=== PATIENT | female | born 1990 | race Caucasian/White ===

== ENCOUNTER 2020-02-23 07:46 | Emergency (ER) | payer BC, SELFPAY ==
--- NOTE | ~2020-02-23 | XR_ITS ---
XR heel LT min 2V 02/23/2020 08:16 Indication: Pain at the insertion of the Achilles tendon. Recent injury. Procedure: 2 views left heel/os calcis Comparison: No prior studies for comparison. Findings: There are prominent degenerative calcaneal enthesophytes. No fracture or traumatic malalign ment. No significant soft tissue abnormality. No radiopaque foreign bodies. Impression: 1: Prominent degenerative calcaneal enthesophytes. 2: No acute bone or joint abnormality. Reviewed, dictated and finalized at location A. Impression: 1: Prominent degenerative calcaneal enthesophytes. 2: No acute bone or joint abnormality.
[2020-02-23 07:59] VITALS: BP 140/88; PULSE 88; RESP 18; TEMP 37; O2SAT 100
--- NOTE | 2020-02-23 08:05 | ED.LOWEXIN ---
HPI - Extremity Injury (Lower) General Chief Complaint: Fall Stated Complaint: L foot pain Source: patient Mode of arrival: ambulatory Limitations: no limitations History of Present Illness HPI Narrative: This 30 y.o. injured her left heel last PM when while walking on an irregular surface she pushed off her left foot to step up. When she put weight on the foot she had immediate heel pain; she was able to walk with a limp. Several hours later there was swelling and increased pain. This AM the pain is #2/10 at rest #6/10 when she attempts to walk. Related Data Allergies Allergy/AdvReac Type Severity Reaction Status Date / Time Penicillins Allergy Mild Blister Verified 02/23/20 08:38 Review of Systems Neurologic: Comments: denies left foot numbness PMFSH Past Medical History Medical History (Updated 02/23/20 @ 08:39 by Emery Nguyễn MD) Patient denies significant medical history Social History Social History Gender identity (if verbalized by the patient): Female Exam Narrative: Exam Narrative: Sitting in a wheelchair. Const: General: no acute distress Extrem: Other: Swelling lateral to the left achilles tender. No discoloration. Tender distal 3 cm of the achilles; very tender over the insertion site. No ankle, foot or plantar heel tenderness or swelling. Pain heel pain with foot dorsiflexion. N Course Vital Signs Vital signs: Vital Signs Temperature 37.0 C 02/23/20 07:59 Pulse Rate 88 02/23/20 07:59 Respiratory Rate 18 02/23/20 07:59 Blood Pressure 140/88 02/23/20 07:59 Pulse Oximetry 100 02/23/20 07:59 Temperature 37.0 C 02/23/20 07:59 Pulse Rate 88 02/23/20 07:59 Respiratory Rate 18 02/23/20 07:59 Blood Pressure 140/88 02/23/20 07:59 Pulse Oximetry 100 02/23/20 07:59 MDM - Extremity Injury (Lower) MDM Narrative Medical decision making narrative: X ray shows no acute bony pathology. Cortés test reveals plantar flexion and intact achilles tendon. Will tx as an achilles tendinitis. Pt. given handout on the appropriate ankle wrap and instructions on how to avoid painful activites. She works 2 jobs; can't take time off. Asks for a note explaining her situation. Insurance has assigned her to Dr. Nuñez who she will see in 4 days. Differential Diagnosis Differential diagnosis: Likely ankle sprain and strain and other (partial tear of distal achilles tendon. ) Imaging Data Radiologist's impression: Impression: 1: Prominent degenerative calcaneal enthesophytes. 2: No acute bone or joint abnormality. Discharge Plan Discharge Clinical Impression: Achilles tendinosis Patient Disposition: Home, Self-Care Condition: Stable Instructions: Achilles Tendinitis (ED) Additional Instructions: Take naproxen 220 mg #2 tablets every 12 hours. If needed for pain, take every 8 hours. Ice every 2 - 4 hours for 15 minutes x 2 days. Follow up with Dr. Nuñez in 4 days for recheck Use crutches if any pain with walking. Use heel insert or elevated heel shoes or wrap ankle ( see handout on ankle wrap given to you) to support heel and avoid pain. Prescriptions: New naproxen 500 mg tablet 500 mg PO BID PRN (Reason: pain) Qty: 20 RF: 0 (DME) crutch Misc See Rx Instructions .ROUTE .MEDSUPPLY Qty: 2 RF: 0 Follow-up/Referrals: PHYSICIAN NOT ON STAFF,NONSTAFF [Primary Care Provider] - Stand Alone Forms: Work/School Release IP Time of Disposition: 08:45
[2020-02-23] MEDS: IBUPROFEN 400 MG TABLET PO (08:37)
--- NOTE | 2020-02-23 08:46 | PC.NURSE ---
ashli wrap to left ankle
[2020-02-23 08:56] VITALS: BP 130/70; PULSE 70; RESP 16; TEMP 36.8; O2SAT 99
== END 2020-02-23 08:57 | disposition home or self-care (01) ==
PROVIDERS: Emergency Provider Family Medicine
DX: M76.62 Achilles tendinitis, left leg (principal)
CPT/HCPCS: 73650; 99281; 99283; A9270

== ENCOUNTER 2021-01-20 14:23 | Emergency (ER) | payer BC, SELFPAY ==
--- NOTE | ~2021-01-20 | XR_ITS ---
EXAMINATION: XR hand LT 2V, XR wrist LT min 3V EXAM DATE: 01/20/2021 15:51 (accession [id number]), 01/20/2021 15:52 (accession [id number]) INDICATION: Left hand/wrist pain x 10 days ago post fall off bed. Initial encounter. TECHNIQUE: Left hand frontal, lateral and oblique projections obtained and reviewed. Left wrist fron migel, frontal with ulnar deviation, oblique and lateral projections obtained and reviewed. There is n o prior study for comparison. FINDINGS: Left metacarpal bones are unremarkable. Left wrist scapholunate joint space is maintained . There are no acute fractures or dislocations identified. There is no subcutaneous gas. The soft t issue is unremarkable. There are no radiopaque foreign bodies. IMPRESSION: 1. Unremarkable left hand, wrist exam. Reviewed, dictated and finalized at location A. IMPRESSION: 1. Unremarkable left hand, wrist exam.
[2021-01-20 14:40] VITALS: BP 151/98; PULSE 106; RESP 16; TEMP 36.6; O2SAT 98
--- NOTE | 2021-01-20 15:48 | ED.UPPEXIN ---
HPI - Extremity Injury (Upper) General Chief Complaint: Extremity Injury, Upper Stated Complaint: wrist and hand pain Time Seen by Provider: 01/20/21 14:45 Source: patient Mode of arrival: ambulatory Limitations: no limitations History of Present Illness HPI narrative: Patient comes in due to left wrist and left hand pain. This has been sharp, moderately severe, ongoing for the past 2 days since she fell off a couch and caught herself with that hand. complaint: injury to: left, wrist and hand Onset (ago): day(s) Place: home Severity: moderate Relieving factors: immobilization Exacerbating factors: movement of extremity Context: fall Associated symptoms: denies other symptoms Treatments prior to arrival: NSAIDS (ibuprofen at home has helped to make it feel some better) Related Data Home Medications Medication Instructions Recorded Confirmed No Home Medications 01/20/21 01/20/21 Allergies Allergy/AdvReac Type Severity Reaction Status Date / Time Penicillins Allergy Mild Blister Verified 02/23/20 08:38 Review of Systems Constitutional: Constitutional: Reports no additional constitutional complaints Eyes: Eyes: Reports no additional eye complaints ENT: Reports system reviewed and no additional complaints, except as documented Cardiovascular: Cardiovascular: Reports no additional cardiovascular complaints Respiratory: Respiratory: Reports no additional respiratory complaints Gastrointestinal: Gastrointestinal: Reports no additional gastrointestinal complaints Genitourinary: Genitourinary: Reports no additional female genitourinary complaints Musculoskeletal: Musculoskeletal: Reports no additional musculoskeletal complaints Integumentary/Breasts: Skin/Breast: Reports system reviewed and no additional complaints, except as docu Neurologic: Reports system reviewed and no additional complaints, except as documented Psychiatric: Psychiatric: Reports no additional psychiatric complaints Endocrine: Endocrine: Reports no additional endocrine complaints Hematologic/Lymphatic: Hematologic/Lymphatic: Reports no additional hematologic/lymphatic complaints Allergic/Immunologic: Allergic/Immunologic: Reports no additional allergic/immunologic complaints [facility] Past Medical History Medical History (Updated 01/21/21 @ 00:01 by Percy Murphy) Patient denies significant medical history Surgical History Surgical History (Updated 01/21/21 @ 02:13 by Demetrius Choi MD) No significant past surgical history Family History Family History (Updated 01/21/21 @ 02:14 by Demetrius Choi MD) Mother Hypothyroid Social History Social History (Updated 01/21/21 @ 02:14 by Demetrius Choi MD) Smoking status: Never smoker Alcohol intake: current Alcohol use details: minimal rare alcohol intake Gender identity (if verbalized by the patient): Female Exam Const: General: no acute distress Orientation/consciousness: patient oriented x3 HENMT: Head: normal to inspection Ears: external ears normal General nose exam: Normal external nose present Mouth: Yes Normal oral and palatal mucosa present Throat: posterior oropharynx normal Eyes: Conjunctivae: conjunctivae normal Neck: Neck: no lymphadenopathy Chest: Chest palpation & inspection: normal inspection of the chest Resp: Effort & Inspection: normal respiratory effort Auscultation: clear to auscultation bilaterally Cardio: Rate: regular rate Rhythm: regular rhythm GI: GI Palp: Yes Soft to palpation (nontender) Back/Spine/Pelvis: Back: no CVA tenderness Skin: General skin exam: normal color Neuro: General: patient oriented x3 and moves all extremities Extrem: General: normal to inspection Psych: Appearance: grossly normal Mental Status: mental status grossly normal Course Course Emergency Course: plain films of left hand and wrist were done, and both negative Vital Signs Vital signs: Vital Signs Temperature 36.6 C 01/20/21 1
== END 2021-01-20 16:30 | disposition home or self-care (01) ==
PROVIDERS: Emergency Provider Emergency Medicine
DX: M25.532 Pain in left wrist (principal)
CPT/HCPCS: 73110; 73120; 99282; 99283

== ENCOUNTER 2021-06-29 07:43 | Outpatient (CLI) | payer BC, SELFPAY ==
--- NOTE | 2021-07-14 12:28 | WPDHOMESLEEP ---
Sleep Study - Home Unattended Date of Study: 06/29/21 <Shirley Chavez DO - Last Filed: 07/14/21 12:48> Ordering Provider: Santana No MD <Shirley Chavez DO - Last Filed: 07/14/21 12:48> Interpreting Provider: Shirley Chavez DO <Shirley Chavez DO - Last Filed: 07/14/21 12:48> Home Sleep Study Type: Apnea Link Air <Shirley Chavez DO - Last Filed: 07/14/21 12:48> Height: 1.57 m <Shirley Chavez DO - Last Filed: 07/14/21 12:48> Weight: 108.862 kg <Shirley Chavez DO - Last Filed: 07/14/21 12:48> Body Mass Index: 43.9 <Shirley Chavez DO - Last Filed: 07/14/21 12:48> Neck Circumference (inches): 16 <Shirley Chavez DO - Last Filed: 07/14/21 12:48> Emerson: 9 <Shirley Chavez DO - Last Filed: 07/14/21 12:48> Reason for Sleep Study Unrefreshing sleep, daytime somnolence <Shirley Chavez DO - Last Filed: 07/14/21 12:48> Sleep History The patient was referred by her primary care physician for unrefreshing sleep and daytime somnolence. The patient states that she has issues falling asleep and staying asleep. She has terrible dreams 5-6 nights per week. She states that she has to sleep in a recliner so she is up around 8. She feels very uncomfortable when she has to sleep flat. The patient states she occasionally awakens from sleep short of breath. She frequently awakens at night with heartburn, belching or cough. He frequently snores but is rarely loud enough that others complain. She frequently has trouble sleeping when she has a cold. She rarely wakes up gasping for air throughout the night. She occasionally has breathing problems at night observed by others. She occasionally sweats excessively at night. She constantly notices heart palpitations or irregular beats throughout the night. She rarely falls asleep during the day but never while driving. She occasionally has trouble at school or work due to sleepiness. She denies sleep paralysis and cataplexy. She frequently experiences vivid dreamlike scenes upon awakening or falling asleep. She occasionally feels afraid of going to sleep. She constantly has nightmares and frequently remembers her dreams. She constantly has thoughts racing through her mind. She occasionally feels sad or depressed. She frequently feels anxious. She occasionally notices parts of her body jerk. She occasionally kicks during the night. She occasionally experiences crawling and aching feelings in her legs and frequently has leg pain during the night. She rarely grinds her teeth during sleep but occasionally awakens with jaw pain in the morning. She is occasionally bothered by pain during the day but is rarely awakened by pain during the night. She occasionally wakes up feeling stiff in the morning with sore and achy muscles. The patient goes to bed between 10 and 11:00 p.m. on the weekdays and between 11 and midnight on the weekends. It takes her an hour or more to fall asleep. She wakes up 5-8 times per night. When she awakens, she will try to stretch or change positions. She can fall back asleep within 5-15 minutes. She wakes up between 6 and 7:00 a.m. on the weekdays and at 8:00 a.m. on the weekends. She typically gets 4-6 hours of sleep per night. She will stay in bed for 10-15 minutes after waking up in the morning. She currently lives with her and 2 children. She does not consume any caffeinated beverages within 2 hours of going to bed. She does not engage in physical exercise before bedtime. She will watch television before falling asleep. She does not take naps in the afternoon or the evening. She drinks 1-2 caffeinated beverages per day. She denies tobacco, alcohol and recreational drug use. <Shirley Chavez, - Last Filed: 07/14/21 12:48> [facility] Past Medical History Medical History: Medical History (Reviewed 07/14/21 @ 12:38 by Shirley Trejo
[2021-07-14 12:47] VITALS: BMI 43.9
== END 2021-06-30 10:40 | disposition home or self-care (01) ==
LOC: ANHCSM 07:44
PROVIDERS: PCP Family Medicine; Visit Provider Family Medicine
DX: G47.33 Obstructive sleep apnea (adult) (pediatric) (principal)
CPT/HCPCS: 95806

== ENCOUNTER 2021-08-03 16:55 | Outpatient (CLI) | payer BC, SELFPAY ==
[2021-08-03 18:31] LABS: Influenza A QL RT-PCR Negative (Negative); Influenza B QL RT-PCR Negative (Negative); SARS-CoV-2 RNA PCR Negative (Negative)
== END 2021-08-03 16:56 | disposition home or self-care (01) ==
LOC: CHSLAB 16:58
PROVIDERS: PCP Family Medicine; Visit Provider Family Medicine
DX: Z20.822 Contact with and (suspected) exposure to COVID-19 (principal); J02.9 Acute pharyngitis, unspecified
CPT/HCPCS: 87081; 87502; 87880; C9803; U0003; U0005

== ENCOUNTER 2021-10-22 21:40 | Emergency (ER) | payer BC, SELFPAY ==
[2021-10-22 21:46] VITALS: BP 150/96; PULSE 113; RESP 18; TEMP 37; O2SAT 100
--- NOTE | 2021-10-22 23:09 | ED.GENADULT ---
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 Reports she has been having daily bleeding for the last 2 months. Reports history of heavy periods. Reports she started passing golf ball size clots today. She also feels little short of breath when she walks. No dizziness or syncope. No fevers or chills or sweats. Has not seen a professor of psychology in 5 years. Does not believe she is . Reports some occasional cramping in her lower abdomen. Related Data Home Medications Medication Instructions Recorded Confirmed multivitamin [Daily Multivitamin] tablet 10/22/21 Allergies Allergy/AdvReac Type Severity Reaction Status Date / Time Penicillins Allergy Mild Blister Verified 10/22/21 23:27 Review of Systems Review of Systems: All systems reviewed & are unremarkable except as noted in HPI and below Constitutional: Constitutional: Denies chills, Denies fever(s) and Denies weakness ENT: Denies nasal congestion and Denies sore throat Cardiovascular: Cardiovascular: Denies chest pain, Denies rapid heart rate and Denies radiating jaw, neck or arm pain Respiratory: Respiratory: Denies cough and Reports dyspnea Gastrointestinal: Gastrointestinal: Reports abdominal pain, Denies diarrhea, Denies nausea and Denies vomiting Genitourinary: Genitourinary: Reports abnormal vaginal bleeding, Denies dysuria, Denies pelvic pain and Denies vaginal discharge PMFSH Past Medical History Medical History Patient denies significant medical history Surgical History Surgical History No significant past surgical history Family History Family History Mother Hypothyroid Social History Social History Smoking status: Never smoker Alcohol intake: current Alcohol use details: minimal rare alcohol intake Gender identity (if verbalized by the patient): Female Exam Narrative: GENERAL: Well-appearing, well-nourished, and in no acute distress. HEAD: Normocephalic, atraumatic. EYES: PERRL and EOMI. CHEST: Clear to auscultation. No respiratory distress. HEART: Regular rate and rhythm. Normal peripheral pulses. ABDOMEN: Soft, nontender, nondistended. : Normal external genitalia, small amount of blood with small clot, normal cervix that is closed, no tendernss. No discharge. EXTREMITIES: Normal range of motion. No edema. SKIN: Warm, dry, no rash. NEURO: Alert and oriented x3. PSYCH: Normal mood and affect. Course Course Emergency Course: Patient informed results. Discharge home. Follow-up with gynecology. Will give iron for anemia. Vital Signs Vital signs: Vital Signs Temperature 98.6 F 10/22/21 21:46 Pulse Rate 113 H 10/22/21 21:46 Respiratory Rate 18 10/22/21 21:46 Blood Pressure 150/96 H 10/22/21 21:46 Pulse Oximetry 100 10/22/21 21:46 Temperature 98.6 F 10/22/21 21:46 Pulse Rate 113 H 10/22/21 23:36 Respiratory Rate 18 10/22/21 21:46 Blood Pressure 112/81 10/22/21 23:36 Pulse Oximetry 100 10/22/21 21:46 Medical Decision Making Vital Signs Vital Signs: Vital Signs Temperature 98.6 F 10/22/21 21:46 Pulse Rate 113 H 10/22/21 21:46 Respiratory Rate 18 10/22/21 21:46 Blood Pressure 150/96 H 10/22/21 21:46 Pulse Oximetry 100 10/22/21 21:46 Temperature 98.6 F 10/22/21 21:46 Pulse Rate 113 H 10/22/21 23:36 Respiratory Rate 18 10/22/21 21:46 Blood Pressure 112/81 10/22/21 23:36 Pulse Oximetry 100 10/22/21 21:46 Lab Data Result diagrams: 10/22/21 23:18 10/22/21 23:18 Labs: Lab Results 10/22/21 10/22/21
[2021-10-22] MEDS: SODIUM CHLORIDE 0.9% IV 1,000 ML 999 ML IV CONT (23:20)
[2021-10-22 23:27] LABS: Basophils Absolute Auto 0.1 K/mm3 (0.0-0.1); Basophils Percent Auto 0.4 % (0.2-1.2); Eosinophils Absolute Auto 0.2 K/mm3 (0-0.3); Eosinophils Percent Auto 1.9 % (0-4.4); Hematocrit 33.5 % (37.0-47.0); Hemoglobin 10.9 g/dL (12.0-15.0); Immature Granulocyte Absolute 0.06 K/mm3 (0.00-0.031); Immature Granulocyte Percent A 0.5 % (0-0.5); Lymphocytes Absolute Auto 3.21 K/mm3 (0.9-3.2); Lymphocytes Percent Auto 27.1 % (18.3-44.2); Mean Corpuscular HGB Conc 32.5 g/dl (32-36); Mean Corpuscular Hemoglobin 28.3 pg (26-34); Mean Platelet Volume 9.7 fl (7.4-10.4); Monocytes Absolute Auto 0.7 K/mm3 (0.1-0.6); Monocytes Percent Auto 6.2 % (2.6-8.5); Neutrophils Absolute Auto 7.6 K/mm3 (1.3-6.7); Neutrophils Percent Auto 63.9 % (45.5-73.1); Platelet Count Result 348 k/mm3 (150-375); Red Blood Count 3.85 M/mm3 (4.2-5.4); Red Cell Distribution Width 15.3 % (11.5-14.5); White Blood Count 11.9 K/mm3 (4.5-10.0)
[2021-10-22 23:36] VITALS: BP 112/81; BP 120/72; BP 128/76; PULSE 101; PULSE 108; PULSE 113
[2021-10-22 23:38] LABS: Anion Gap 9 mmol/L (8-16); Blood Urea Nitrogen 13 mg/dL (7-17); Calcium 9.4 mg/dL (8.4-10.2); Carbon Dioxide 24 mmol/L (22-30); Chloride 106 mmol/L (98-107); Estimated CRCL calculation 84 ml/min; Estimated Glomerular Filt Rate > 60; Glucose 107 mg/dL (65-110); Potassium 4.1 mmol/L (3.4-5.0); Sodium 139 mmol/L (137-145)
[2021-10-22 23:43] LABS: Add Urine Microscopic? YES; Appearance Urine Clear (Clear); Bilirubin Urine Negative (Negative); Blood Urine 3+ (Negative); Calcium Oxalate Crystals Urine Many /hpf; Color Urine Yellow (Yellow); Glucose Urine UA Negative (Negative); Ketones Urine Negative (Negative); Leukocyte Esterase Ur Negative LEU/UL (Negative); Mucus Urine Rare /lpf; Nitrate Urine Negative (Negative); Protein Urine 1+ mg/dL (Negative); RBC Urine >75 /hpf (0-2); Specific Grav Ur 1.025 (1.001-1.035); Squamous Epithelial Cell Urine Rare /hpf (Few); Urobilinogen Urine Negative mg/dL (<2.0); WBC Urine 0-3 /hpf
[2021-10-23 00:34] VITALS: BP 125/76; PULSE 101; RESP 18; O2SAT 100
== END 2021-10-23 00:38 | disposition home or self-care (01) ==
PROVIDERS: Emergency Provider Emergency Medicine; PCP Family Medicine
DX: N93.8 Other specified abnormal uterine and vaginal bleeding (principal); D64.9 Anemia, unspecified
CPT/HCPCS: 36415; 80048; 81001; 81025; 85025; 96360; 99284; J7030

== ENCOUNTER 2022-06-14 16:44 | Outpatient (NON) | payer BC, SELFPAY ==
[2022-06-14 17:00] LABS: Occult Blood Negative (Negative)
[2022-06-14 17:00] LABS: Occult Blood Negative (Negative)
[2022-06-14 17:00] LABS: Occult Blood Negative (Negative)
== END 2022-06-14 16:45 | disposition home or self-care (01) ==
LOC: CHSLAB 16:46
PROVIDERS: Visit Provider Family Medicine
DX: D50.9 Iron deficiency anemia, unspecified (principal)
CPT/HCPCS: 82272

== ENCOUNTER 2022-07-19 12:07 | Outpatient (CLI) | payer BC, SELFPAY ==
[2022-07-19 13:27] LABS: Influenza A QL RT-PCR Positive (Negative); Influenza B QL RT-PCR Negative (Negative); SARS-CoV-2 RNA PCR Negative (Negative)
== END 2022-07-19 12:08 | disposition home or self-care (01) ==
PROVIDERS: PCP Family Medicine; Visit Provider Family Medicine
DX: J06.9 Acute upper respiratory infection, unspecified (principal); Z20.822 Contact with and (suspected) exposure to COVID-19
CPT/HCPCS: 87636

== ENCOUNTER 2024-10-24 08:03 | Emergency (ER) | payer OTHER, SELFPAY ==
[2024-10-24 08:07] VITALS: BP 115/67; PULSE 64; RESP 16; TEMP 36.6; O2SAT 99
--- OUTSIDE RECORDS SUMMARY | 2024-10-24 08:08 | XMS_ITS | Referral Summary ---
Author Organization [facility] Address [address] [place] [address] Care Team Providers Care Trauma Coordinator Name Role Phone Mary Lou Gallardo NP Primary Care Provider [phone] Encounters Date Type Department Care Team Description 10/17/2024 11:00 AM CHART SNATCHER Office Visit [facility] Medical [facility] at [address] [address] Qian Yuen NP Dental abscess (Primary Dx) 10/09/2024 6:49 PM CHART SNATCHER - 10/09/2024 9:39 PM CHART SNATCHER Emergency [facility] Emergency Department [address] [place] [address] Other migraine without status migrainosus, not intractable (Primary Dx) Discharge Disposition: Discharge to home or self care 10/08/2024 1:00 PM CHART SNATCHER Office Visit [facility] at [address] [place] [address] Benny Ferrer DO Acute left ankle pain (Primary Dx); Closed nondisplaced fracture of left calcaneus, unspecified portion of calcaneus, initial encounter 09/28/2024 7:15 PM CHART SNATCHER Office Visit [facility] at [address] [address] Lebron Thomas NP Acute left ankle pain (Primary Dx); Achilles tendon pain 09/28/2024 10:30 AM CHART SNATCHER Ancillary Procedure [facility] at [address] [address] Left foot pain 09/28/2024 Orders Only [facility] Medical [facility] Primary Care at [address] [address] Mary Lou Gallardo NP Left foot pain (Primary Dx) 09/28/2024 Telephone [facility] at [address] [address] Mary Lou Gallardo NP Left foot pain from Last 3 Months Allergies Active Allergy Reactions Criticality Noted Date Comments Cigarette Smoke Unknown 09/12/2023 Penicillins Hives Medium 05/11/2023 Medications ascorbic acid (vitamin C) 1,000 mg tablet Take 1 tablet (1,000 mg total) by mouth daily Active buPROPion XL (WELLBUTRIN XL) 150 mg 24 hr tablet Take 1 tablet (150 mg total) by mouth every morning 90 tablet 1 05/28/20 24 Active ergocalciferol (VITAMIN D) 50,000 unit capsule Take 1 capsule (50,000 Units total) by mouth once a week 12 capsule 06/13/20 24 Active diphenhydrAMINE (BENADRYL) 25 mg capsuleIndicati ons:Other migraine without status migrainosus, not intractable Take 1 tablet/capsule (25 mg total) by mouth every 8 (eight) hours as needed for other (Take as directed with each dose of prochlorperazine to help alleviate headache, dizziness, and prevent jitteriness from prochlorperazine) Collaborating physician Emery Casper MD 30 tablet/caps ule 10/09/19 25 Active prochlorperazin e (COMPAZINE) 10 mg tabletIndicatio ns:Other migraine without status migrainosus, not intractable Take 0.5-1 tablets (5-10 mg total) by mouth every 8 (eight) hours as needed for nausea (And headache) Collaborating physician Emery Casper MD 20 tablet 10/09/19 25 Active naproxen (NAPROSYN) 500 mg tabletIndicatio ns:Other migraine without status migrainosus, not intractable Take 1 tablet (500 mg total) by mouth 2 (two) times a day with meals P.r.n. pain and headache. Collaborating physician Emery Casper MD 30 tablet 10/09/19 25 Active clindamycin (CLEOCIN) 300 mg capsuleIndicati ons:Dental abscess Take 1 capsule (300 mg total) by mouth 3 (three) times a day for 10 days 30 capsule 10/17/19 25 025 Active Active Problems Problem Noted Date Diagnosed Date Migraine 10/09/2024 Well woman exam 07/23/2024 Overview (07/23/2024): Lab: Pap:all normal Labs with PCP Tim: Colonoscopy: BMD: Gardasil:11/05 Assessment & Plan (07/23/2024 12:28 PM CHART SNATCHER): Pap done. RTO 12m. I will send the results to the portal. If she has not heard in a week, to call the office. BMI 38.0-38.9,adult 07/23/2024 Assessment & Plan (07/23/2024 12:29 PM CHART SNATCHER): She was applauded for her weight loss and encouraged to continue on. Family history of breast cancer 07/23/2024 Overview (07/23/2024): 07/23/24- mom, sister and aunt carry a gene Assessment & Plan (07/23/2024 12:33 PM CHART SNATCHER): She qualifies for genetic testing. Will arrange. RTO 6 weeks for the results. We discussed that she will get the results through email prior to this, but we will wait to discuss them at her scheduled appointment. The limitations and implications of the test reviewed. She voices understanding and would like to proceed. Pricing and instructions for declining if it cost too much were reviewed by the staff. 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 We started Wellbutrin XL. Has improved with the Wellbutrin XL 150 mg daily. 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 Will stay at the 150 mg daily dosage and see if this improves as it seems to be helping mood. Patient to message me in a couple weeks to see if any improvement. May need to switch to alternative medication. She has tried Sertraline in the past. Considering Lexapro. Assessment & Plan (03/22/2024 1:45 PM CDT): Never formally diagnosed. Patient exhibiting some sx of ADHD but also anxiety/depression. She feels mood is stable overall, will continue to monitor and she will let me know if she is needing medication. CAARS screen provided to patient, Wellbutrin may be a good option for her though with mood hx. Anxiety Assessment & Plan (05/01/2024 1:12 PM CDT): Has improved with the Wellbutrin XL 150 mg daily. 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 Will stay at the 150 mg daily dosage and see if this improves as it seems to be helping mood. Patient to message me in a couple weeks to see if any improvement. May need to switch to alternative medication. She has tried Sertraline in the past. Considering Lexapro. Depression Resolved Problems Problem Noted Date Diagnosed Date Resolved Date Abnormal uterine bleeding 12/09/2021 Immunizations Immunization Administration Dates Next Due Hep B, Adolescent or Pediatric 10/26/2000,1999,03/10/2000 Influenza, Unspecified 09/05/2023,09/05/2022 Pneumococcal Polysaccharide PPV23 12/01/2013 Tdap 09/23/2016,12/02/2013 Social History Tobacco Use Types Packs/Day Years Used Date Smoking Tobacco: Never Smokeless Tobacco: Never Tobacco Cessation:Counseling Given: Not Answered Humiliation, Afraid, Rape, and Kick questionnair e Answer Date Recorded Within the last year, have y ou been afraid of your partner or ex-partner? No 07/23/2024 Within the last year, have y ou been humiliated or emotionally abused in other ways by your partner or ex-partner? No Within the last year, have y ou been kicked, hit, slapped, or otherwise physically hurt by your partner or ex-partner? No 07/23/2024 Within the last year, have y ou been raped or forced to have any kind of sexual activity by your partner or ex-partner? No 07/23/2024 AUDIT-C Answer Date Recorded Q1: How often do you have a drink containing alcohol? Never 05/23/2023 Q2: How many drinks containi ng alcohol do you have on a typical day when you are drinking? Patient does not drink Q3: How often do you have si x or more drinks on one occasion? Never 05/23/2023 PHQ-2 Answer Date Recorded PHQ-2 Total Score (If total score is 3 or more points, staff should administer the PHQ-9) 0 05/01/2024 Personal Safety Answer Date Recorded Have you ever been in or are you currently in a harmful physical or emotional relationship or is someone making you feel afraid or unsafe? Denies 10/09/2024 Comments No Sex and Gender Information Value Date Recorded Sex Assigned at Not on file Legal Sex Female 11:52 AM CHART SNATCHER Gender Identity Not on file Sexual Orientation Not on file Last Filed Vital Signs Vital Sign Reading Time Taken Comments Blood Pressure 128/84 10/17/2024 10:48 AM CHART SNATCHER Pulse 97 10/17/2024 10:48 AM CHART SNATCHER Temperature 37 C (98.6 F) 10/17/2024 10:48 AM CHART SNATCHER Respiratory Rate 20 10/17/2024 10:48 AM CHART SNATCHER Oxygen Saturation 98% 10/17/2024 10:48 AM CHART SNATCHER Inhaled Oxygen Concentration - - Weight 90.7 kg (200 lb) 10/09/2024 3:12 PM CHART SNATCHER Height 157.5 cm (5' 2 ) 10/08/2024 12:57 PM CHART SNATCHER Body Mass Index 36.58 10/08/2024 12:57 PM CHART SNATCHER Plan of Treatment Not on file Procedures Procedure Name Priority Date/Time Associated Diagnosis Comments CT HEAD WO CONTRAST ED 10/09/2024 3:46 PM CHART SNATCHER XR FOOT LEFT 3 OR MORE VIEWS Schedule Routine, Read Routine (OP Routine) 09/28/2024 10:32 AM CHART SNATCHER Left foot pain HIGH RISK HPV DNA DETECTION WITH GENOTYPING Routine 07/23/2024 1:43 PM CHART SNATCHER Well woman exam HEPATITIS C ANTIBODY Routine 03/22/2024 12:30 PM CDT Encounter for hepatitis C screening test for low risk patient from Last 3 Months or Most Recently Relevant to Health Maintenance Results * CT Head WO Contrast (10/09/2024 3:46 PM CHART SNATCHER) Anatomical Region Laterality Modality Head and Neck N/A Computed Tomogra phy 10/09/2024 4:00 PM CHART SNATCHER Narrative 10/09/2024 4:03 PM CHART SNATCHER EXAM DESCRIPTION: CT HEAD WO CONTRAST REASON FOR STUDY: Worsening headache accompanied by nausea Pt arrives ambulatory with steady gait and personal cane. Pt states hx of migraines. Pt states today had a migraine took medication and pain somewhat relieved but was nauseated. Pt states feeling dizzy as well as having photosensitivity and rates 2/10 for pain. Neuro assess normal. Pt states directly prior was negative for Covid, flu, and strep. TECHNIQUE: Axial images acquired through the brain without intravenous contrast. Images stored on PACS. Automated exposure control was used as a dose optimization technique for this examination. COMPARISON: None. FINDINGS: BRAIN: No acute intraparenchymal hemorrhage, cerebral edema, hydrocephalus, mass, or mass effect. EXTRA-AXIAL SPACES: No extra-axial fluid collection or mass. CALVARIUM: No acute skull base or calvarial abnormality. SINUSES/MASTOIDS: Predominantly clear. ORBITS: No significant abnormality. OTHER: No other significant abnormality. IMPRESSION: No evidence of an acute intracranial abnormality. THIS IS AN ELECTRONICALLY VERIFIED FINAL REPORT 10/09/2024 4:03 PM - Electronically signed by Dawson Degroot M.D. CH: NORA Report ID: [id number] Reading Location: [id number] Procedure Note Dawson Degroot Jr., MD - 10/09/2024 EXAM DESCRIPTION: CT HEAD WO CONTRAST REASON FOR STUDY: Worsening headache accompanied by nausea Pt arrives ambulatory with steady gait and personal cane. Pt states hxof migraines. Pt states today had a migraine took medication and painsomewhat relieved but was nauseated. Pt states feeling dizzy as well as having photosensitivity and rates 2/10 for pain. Neuro assess normal. Pt states directly prior was negative for Covid, flu, and strep. TECHNIQUE: Axial images acquired through the brain without intravenous contrast. Images stored on PACS. Automated exposure control was used asa dose optimization technique for this examination. COMPARISON: None. FINDINGS: BRAIN: No acute intraparenchymal hemorrhage, cerebral edema,hydrocephalus, mass, or mass effect. EXTRA-AXIAL SPACES: No extra-axial fluid collection or mass. CALVARIUM: No acute skull base or calvarial abnormality. SINUSES/MASTOIDS: Predominantly clear. ORBITS: No significant abnormality. OTHER: No other significant abnormality. IMPRESSION: No evidence of an acute intracranial abnormality. THIS IS AN ELECTRONICALLY VERIFIED FINAL REPORT 10/09/2024 4:03 PM - Electronically signed by Dawson Degroot M.D. CH: Report ID: [id number] Reading Location: [id number] Michele ESPINOZA IM CT PROCEDURES Final Resu lt * XR Foot Left 3+ Vw (09/28/2024 10:32 AM CHART SNATCHER) Anatomical Region Laterality Modality Lower Extremities, Foot Left Digital Radiography 09/28/2024 11:2 4 AM CHART SNATCHER Narrative 09/28/2024 11:25 AM CHART SNATCHER EXAM DESCRIPTION: XR FOOT LEFT 3 OR MORE VIEWS REASON FOR STUDY: left foot pain/injury Pt complains of medial and posterior foot pain with sharp pain shooting up leg after using leg weights x 1 week ago. No prior fx or surgery. FINDINGS: Three views nonweightbearing submitted without comparison. No acute fracture. The midfoot joint spaces are normal. There is mild 1st metatarsophalangeal joint osteoarthritis. Insertional Achilles tendinopathy with enthesophyte formation and a moderate-sized heel spur are present. 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 Moderate-sized heel spur. THIS IS AN ELECTRONICALLY VERIFIED FINAL REPORT 09/28/2024 11:25 AM - Electronically signed by Benny Garcia M.D. T: Report ID: [id number] Reading Location: [id number] Procedure Note Benny Garcia MD - 09/28/2024 EXAM DESCRIPTION: XR FOOT LEFT 3 OR MORE VIEWS REASON FOR STUDY: left foot pain/injury Pt complains of medial and posterior foot pain with sharp pain shooting upleg after using leg weights x 1 week ago. No prior fx or surgery. FINDINGS: Three views nonweightbearing submitted without comparison. No acute fracture. The midfoot joint spaces are normal. There is [id number] metatarsophalangeal joint osteoarthritis. Insertional Achillestendinopathy with enthesophyte formation and a moderate-sized heel spur are present. 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 Moderate-sized heel spur. THIS IS AN ELECTRONICALLY VERIFIED FINAL REPORT 09/28/2024 11:25 AM - Electronically signed by Benny Garcia M.D. T: Report ID: [id number] Reading Location: [id number] us Mary Lou Gallardo CIRCUIT TESTER IMG XR PROCEDURES Final Result * High Risk HPV DNA Detection with Genotyping (Molecular component) (07/23/2024 1:43 PM CHART SNATCHER) HPV HR 16 Not Detected Not Detected [facility] Comment:Testing performed by : [facility], [address] [place]., [address] HPV HR 18 Not Detected Not Detected [facility] Comment:Testing performed by : [facility], [address] [facility], [place]., [address] HPV HR Non 16/18 Not Detected Not Detected [facility] Comment: Interpretive Data Nucleic acid amplification for detection of high-risk Human Papilloma virus (HPV) is performed by the Wu Carlyle 6800 HPV test. This assay specifically detects HPV-16 and HPV-18 genotypes. The following HPV genotypes are detected as high-risk HPV: HPV-31, 33, 35, ,39, 45, 51, 52, 56, 58, 59, 66, and 68. This assay has been approved by the [place] Food and Drug Administration for detection of HPV in cervical specimens collected by a physician using an endocervical brush/spatula or cervical broom and placed in the ThinPrep Pap Test PreservCyt collection containers. The performance characteristics of this test have been verified by the [facility] Molecular Infectious Disease laboratory. Correlate with separately reported cytology results, as applicable. Interpretive data last revised 23 Testing performed by: [facility], [address] [place]., [address] Endocervical 07/23/2024 1:43 PM CHART SNATCHER 07/24/2024 1:04 PM CHART SNATCHER Jose L GUNDERSON - 07/24/2024 8:29 PM CHART SNATCHER Clinical history and diagnosis->Well Woman Number of vials->1 Testing type->Screening Last menstrual period (date if known)->07/20/2023 Menstrual status->Other, please type in Ablation Mary Alice Traore MD LAB BODY FLUIDS AND STOOLS ORDERABLES Final Result [facility] [id number] [address] Department [place] [address] [facility] * Hepatitis C antibody Blood (03/22/2024 12:30 PM CDT) Hep C Ab Nonreactive Nonreactive Comment: Interpretive Data Nonreactive: Antibodies to HCV not detected. Does NOT exclude the possibility of recent exposure to HCV. Equivocal: Equivocal for HCV antibodies. Supplemental molecular testing will be automatically performed to determine infection status in accordance with current CDC screening recommendations. Reactive: Positive for HCV antibodies. This may represent current or past HCV infection. Supplemental molecular testing will be automatically performed to determine current infection status in accordance with current CDC screening recommendations. Interpretive data was last revised on 2019. Blood 03/22/2024 12:3 0 PM CDT 03/22/2024 7:15 PM CDT Mary Lou Gallardo NP LAB MICROBIOLOGY - GENERAL [place] [id number] [address] Department [place] [address] from Last 3 Months or Most Recently Relevant to Health Maintenance Insurance [employer] [employer] Address: [facility] [id number] [place] [address] [facility] PL[facility] Care Teams Trauma Coordinator Relationship Specialty Start Date End Date Mary Lou Gallardo NP [address] [facility] [address] [place] [address] PCP - General Family Medicine 03/22/24
--- OUTSIDE RECORDS SUMMARY | 2024-10-24 08:08 | XMS_ITS | Clinical Summary ---
Author Organization [facility] Address [address] [place] [address] Care Team Providers Care Press Washer Name Role Phone Jaun Nuñez MD Primary Care Provider [phone] Allergies Active Allergy Reactions Criticality Noted Date Comments Penicillins Hives 02/24/2020 Medications naproxen sodium 220 MG tablet Take 220 mg by mouth 2 (two) times daily with meals. Active Social History Tobacco Use Types Packs/Day Years Used Date Smoking Tobacco: Never Smokeless Tobacco: Never Alcohol Use Standard Drinks/Week Comments Yes 0 (1 standard drink = 0.6 oz pur e alcohol) occasionally Comments No Sex and Gender Information Value Date Recorded Sex Assigned at Not on file Legal Sex Female 5:52 AM CDT Gender Identity Not on file Sexual Orientation Not on file Last Filed Vital Signs Vital Sign Reading Time Taken Comments Blood Pressure 144/78 02/24/2020 6:02 AM CDT Pulse 89 02/24/2020 6:02 AM CDT Temperature 36.4 C (97.6 F) 02/24/2020 6:02 AM CDT Respiratory Rate 18 02/24/2020 6:02 AM CDT Oxygen Saturation 99% 02/24/2020 6:02 AM CDT Inhaled Oxygen Concentration - - Weight 97.5 kg (215 lb) 02/24/2020 6:02 AM CDT Height 157.5 cm (5' 2 ) 02/24/2020 6:02 AM CDT Body Mass Index 39.32 02/24/2020 6:02 AM CDT Plan of Treatment Health Maintenance Due Date Last Done Comments Cervical Cancer Screening Pa p Smear (Age 30 to 64) Every 3 Years 1991 Annual Physical 1994 Hepatitis C 2009 DTaP, Tdap and Td Vaccines ( 1 - Tdap) 2010 Hepatitis B Vaccines (1 of 3 - 19+ 3-dose series) 2010 Cervical Cancer Screening Ryne davis with HPV Testing (Age 30 to 64) Every 5 Years 2021 Cervical Cancer Screening with HPV 2021 COVID-19 Vaccine ( - 2023-2 5 season) 2024 Influenza Adult (#1) 2024 HPV Vaccines Aged Out No longer eligi ble based on patient's age to complete this topic Meningococcal B Vaccine Aged Out No l onger eligible based on patient's age to complete this topic Meningococcal Vaccine Aged Out No jolene arun eligible based on patient's age to complete this topic Pneumococcal Vaccine: Pediat rics (0 to 5 Years) and At-Risk Patients (6 to 64 Years) Aged Out No longer eligible b ased on patient's age to complete this topic RSV Immunizations Under 20 Months Aged Out No longer eligible based on patient's age to complete this topic Insurance Care Teams Press Washer Relationship Specialty Start Date End Date Jaun Nuñez MD [address] [place] [address] PCP - General INTERNAL MEDICINE 02/24/20
--- OUTSIDE RECORDS SUMMARY | 2024-10-24 08:08 | XMS_ITS | Clinical Summary ---
Author Organization [facility] Address [address] [place] [address] Phone Care Team Providers Care Rayon Winder Name Role Phone Provider, None Primary Care Provider Unavailabl e Allergies Active Allergy Reactions Criticality Noted Date Comments Penicillins Anaphylaxis 09/19/2016 Medications Vit-Fe Fumarate-FA ( VITAMIN PO) Take 1 Tab by mouth daily. Active ondansetron (ZOFRAN) 4 MG Tablet Take 1 Tab by mouth every 8 hours as needed for Nausea. 10 Tab 0 09/20/2016 Active ibuprofen (MOTRIN) 200 MG Tablet Take 2-3 tabs orally every 4-6 hours as needed for pain. 09/24/2016 Active Active Problems Problem Noted Date Diagnosed Date , unspecified trimester 09/22/2016 Immunizations Immunization Administration Dates Next Due TDAP Vaccine 09/23/2016 Family History Medical History Relation Name Comments Heart Disease Maternal Grandmother Breast Cancer Paternal Grandmother Relation Name Status Comments Maternal Grandmother Paternal Grandmother Social History Tobacco Use Types Packs/Day Years Used Date Smoking Tobacco: Never Smokeless Tobacco: Never Tobacco Cessation:Counseling Given: Not Answered Alcohol Use Standard Drinks/Week Comments No 0 (1 standard drink = 0.6 oz pur e alcohol) Sexually Active Control Partners Comments Yes Male Comments No Sex and Gender Information Value Date Recorded Sex Assigned at Not on file Legal Sex Female 10:17 PM CDT Gender Identity Not on file Sexual Orientation Not on file Last Filed Vital Signs Vital Sign Reading Time Taken Comments Blood Pressure 124/66 05/24/2023 8:16 PM CDT Pulse 75 05/24/2023 8:16 PM CDT Temperature 36.2 C (97.1 F) 05/24/2023 8:16 PM CDT Respiratory Rate 18 05/24/2023 8:16 PM CDT Oxygen Saturation 99% 05/24/2023 8:16 PM CDT Inhaled Oxygen Concentration - - Weight 96.6 kg (213 lb) 05/24/2023 8:16 PM CDT Height 157.5 cm (5' 2 ) 05/24/2023 8:16 PM CDT Body Mass Index 38.96 05/24/2023 8:16 PM CDT Plan of Treatment Not on file Insurance [place] [id number] Advance Directives * Full Code (Latest Code Status on File) Date Activated Date Inactivated Comments 09/22/2016 5:46 AM 09/24/2016 8:05 PM CPR-Full Rahul atment: FULL ARREST: Attempt Resuscitation/CPR wit intubation and mechanical ventilation. PRE-ARREST: Use entire range of life support measures to stabilize the patient. * Full Code Date Activated Date Inactivated Comments 09/21/2016 3:31 PM 09/21/2016 7:52 PM CPR-Full Rahul atment: FULL ARREST: Attempt Resuscitation/CPR wit intubation and mechanical ventilation. PRE-ARREST: Use entire range of life support measures to stabilize the patient. * Full Code Date Activated Date Inactivated Comments 09/19/2016 12:36 PM 09/19/2016 8:08 PM CPR-Full Tr eatment: FULL ARREST: Attempt Resuscitation/CPR wit intubation and mechanical ventilation. PRE-ARREST: Use entire range of life support measures to stabilize the patient. Care Teams Rayon Winder Relationship Specialty Start Date End Date Provider, None [place] PCP - General 09/20/16
--- OUTSIDE RECORDS SUMMARY | 2024-10-24 08:08 | XMS_ITS | Data Portability ---
Author Organization [facility] , [facility] Address [address] [place] [address] Care Team Providers Care Curator Of Collections Name Role Phone [facility] Ramp Supervisor Assessment No assessment recorded. Plan of Treatment Reminders Order Date Submit Date Provider Last Modified By Organization Details Last Modified Time Details Appointments None recorded. [facility] test, [facility] [address] [place], [address], 3 09:59:23 biopsy, tissue 2022 023 [facility], [address] [place], [address], 3 18:39:24 unlisted lab - abnormal uterine bleeding evaluation panel ([facility]) 2022 023 [facility], [address] [place] [address], [address], 3 11:52:58 CBC w/ auto diff 2022 023 [facility], [address] [place], [address], 3 11:32:35 Referral None recorded. Procedures None recorded. Surgeries None recorded. Imaging None recorded. Medication Orders Slynd 4 mg (28) tablet 2022 023 [id number], [address], [place], [id number], 3 19:22:58 Reclipsen (28) 0.15 mg-0.03 mg tablet [address] [id number], [address], [place], [phone], 3 15:53:33 Patient TargetsNo targets recorded. Patient InstructionsNo instructions recorded. Reason for Referral None Reported. Results Created Date Observation Date Name Description Value Unit Range Abnormal Flag Note LastModifiedBy Organization Detail LastModifiedTime 03/09/2003/10/2023 CBC (INCL UDES DIFF/ PLT) WBC 11.4 thous and/u L 4.0 - 9.8 high Not [place], [address], 03/10/2023 11:32:35 03/09/20 23 03/10/2023 CBC (INCL UDES DIFF/ PLT) RBC 4.5 maciej on/uL 3.9 - 4.9 normal [place], [address], 03/10/2023 11:32:35 03/09/20 23 03/10/2023 CBC (INCL UDES DIFF/ PLT) hemoglobin 11.5 g/dL 11.8 - 14.8 low Not [place], [address], 03/10/2023 11:32:35 03/09/20 23 03/10/2023 CBC (INCL UDES DIFF/ PLT) hematocrit 36.2 % 35.5 - 44.0 normal [place], [address], 03/10/2023 11:32:35 03/09/20 23 03/10/2023 CBC (INCL UDES DIFF/ PLT) MCV 80.1 fL 82.0 - 99.0 low Not Available [address], [address], 03/10/2023 11:32:35 03/09/20 23 03/10/2023 CBC (INCL UDES DIFF/ PLT) MCH 25.4 pg 27.2 - 32.6 low Not Available [address], [address], 03/10/2023 11:32:35 03/09/20 23 03/10/2023 CBC (INCL UDES DIFF/ PLT) MCHC 31.8 g/dL 31.5 - 35.5 normal Not Available [address], [address], 03/10/2023 11:32:35 03/09/20 23 03/10/2023 CBC (INCL UDES DIFF/ PLT) RDW-CV 19.4 % 11.5 - 14.5 high Not Available [address], [address], 03/10/2023 11:32:35 03/09/20 23 03/10/2023 CBC (INCL UDES DIFF/ PLT) platelet 411 thous and/u L 140 - 350 high Not Available [address], [address], 03/10/2023 11:32:35 03/09/20 23 03/10/2023 CBC (INCL UDES DIFF/ PLT) MPV 10.8 fL 9.3 - 12.4 normal Not Available [address], [address], 03/10/2023 11:32:35 03/09/20 23 03/10/2023 CBC (INCL UDES DIFF/ PLT) absolute neutrophil 7.81 thous and/u L 1.90 - 7.00 high Not Available [address], [address], 03/10/2023 11:32:35 03/09/20 23 03/10/2023 CBC (INCL UDES DIFF/ PLT) absolute lymphocyte 2.72 thous and/u L 0.70 - 4.50 normal Not Available [address], [address], 03/10/2023 11:32:35 03/09/20 23 03/10/2023 CBC (INCL UDES DIFF/ PLT) absolute monocyte 0.57 thous and/u L 0.10 - 1.30 normal Not Available [address], [address], 03/10/2023 11:32:35 03/09/20 23 03/10/2023 CBC (INCL UDES DIFF/ PLT) absolute eosinophil 0.19 thous and/u L <0.70 normal Not Available [address], [address], 03/10/2023 11:32:35 03/09/20 23 03/10/2023 CBC (INCL UDES DIFF/ PLT) absolute basophil 0.05 thous and/u L <0.20 normal Not Available [address], [address], 03/10/2023 11:32:35 03/09/20 23 03/10/2023 CBC (INCL UDES DIFF/ PLT) absolute immature granulocyte 0.02 thous and/u L <0.03 normal Not Available [address], [address], 03/10/2023 11:32:35 03/09/20 23 03/10/2023 ABNOR MAL UTERI NE BLEED ING EVALU ATION PANEL ([facility] ) HCG, total, quant < 2 mIU/m L < 5 Refer ence Range s are for femal es aged 18 years - Adult Nonpr egnan t or preme nopau stuart <5 Postm enopa usal <10 Value s from diffe rent assay metho ds may vary. The use of this assay to monit or or to diagn ose patie nts with cance r or any other condi tion unrel ated to pregn laquita has not been valid ated by the manuf actur genie of this assay . Not Available [facility] [address] [place], [address], 03/10/2023 11:52:57 03/09/20 23 03/10/2023 ABNOR MAL UTERI NE BLEED ING EVALU ATION PANEL ([facility] ) TSH 2.40 mIU/L 0.55 - 4.78 normal Refer ence Range Femal e aged 18-Ad ult: 0.55- 4.78 Pregn laquita Refer ence Range s First Trime ster 0.26- 2.66 Secon d Trime ster 0.55- 2.73 Third Trime ster 0.43- 2.91 Not Available [facility] [address] [place], [address], 03/10/2023 11:52:57 03/09/20 23 03/10/2023 ABNOR MAL UTERI NE BLEED ING EVALU ATION PANEL ([facility] ) T4, free 1.07 NG/dL 0.89 - 1.76 normal Not Available [address], [address], 03/10/2023 11:52:57 04/11/20 23 04/13/2023 TISSU E PATHO LOGY clinical information Abnor mal uteri ne bleed ing Not Available [facility] [address] [place], [address], 04/13/2023 18:39:24 04/11/2004/13/2023 TISSU E PATHO LOGY pathologist Nasim Parra M.D., Board Certi fied in Anato balta Patho logy and Clini ariane Patho logy. Phone (elec troni c john ac) Not Available [facility] [address] [place], [address], 04/13/2023 18:39:24 04/11/20 23 04/13/2023 TISSU E PATHO LOGY A source Endom etriu m, biops y Not Available [facility] [address] [address] [place], [address], 04/13/2023 18:39:24 04/11/20 23 04/13/2023 TISSU E PATHO LOGY A gross description Speci men is recei miroslava in 10% neutr al buffe red forma zamzam, label ed with multi ple patie nt ident ifier s and consi sts of multi ple fragm ents of soft tissu e aggre gatin g to 2.0 x 1.5 x 0.3 cm, irreg ular in shape and taylor-b rown in color . The speci men is entir rylie submi tted in one casse tte. Gross exam( s) perfo rmed at: [facility] [address] [place] [address], [place] [address] Labor atory Direc tor: JANNETH Mckeon MD Not Available [facility] [address] [address] [place], [address], 04/13/2023 18:39:24 04/11/20 23 04/13/2023 TISSU E PATHO LOGY A diagnosis Benig n disor dered proli ferat bran endom etriu m with copio us blood . No hyper plasi a or malig uriel . Not Available [facility] [address] [place], [address], 04/13/2023 18:39:24 04/11/20 23 04/11/2023 pregn laquita test, urine HCG negati ve Not Available [facility] [address] [place], [address], 04/08/2023 08:47:37 04/08/2004/07/2023 US, tavia mckeon No observ ation record ed. [email or web address], [place], [address], 04/13/2023 10:27:17 Result Notes None recorded. Problems Name Problem SNOMED Code Status Onset Date Resolution Date Notes Provider Name and Address Organization Details Recorded Time Abnormal uterine bleeding 78098858718184 Active 2021 Eliezer Kirkpatrick, HAILEY [address] [place], [address], [facility] 2 15:30:53 Problem Notes None recorded. Procedures Surgical History Date Name Laterality Status Provider Name and Address Organization Details Recorded Time 3 Suture/Staple removal completed Lisette Nguyễn [facility] 06/15/2023 10:18:10 3 Endometrial Biopsy completed Kayleen Bernard [place] [address] [place] [address], [phone], [facility] [place] 04/11/2023 19:18:51 2 Date of Last Pap Smear completed Kayleen Bernard [place] [address] [place] [address], [phone], [facility] 04/08/2023 08:46:19 Imaging Results Imaging Date Name Status LastModified by Organiz ation Details LastModified Time 04/07/2023 US, pelvis completed [email or web address] [address], [place], [address], 04/13/2023 10:27:17 Procedure Notes None recorded. Medical Equipment None Reported. Allergies Allergen ID Allergen Name Allergen Category Reaction Reaction Severity Criticality Documentation Date Start Date Code Code System Note Provider Name and Address Organization Details Recorded Time 41120105 cigarette smoke environme nt Not available Not available Not available 10/26/2021 25040 UNK Not Available Not Available Not Available 41120106 Product containin g penicilli n (product) medicatio n Not available Not available Not available 10/26/2021 19694 8001 SNOMED Not Available Not Available Not Available Medications Name Sig Start Date Stop Date Status Note LastModified by Organization Details LastModified Time medroxypro gesterone 10 mg tablet TAKE 1 TABLET BY MOUTH EVERY DAY FOR 10 DAYS 03/29 completed Not Available Not Available Not Available clindamyci n HCl 300 mg capsule TAKE 1 CAPSULE BY MOUTH THREE TIMES DAILY 04/07 completed Not Available Not Available Not Available oxycodone- acetaminop hen 5 mg-325 mg tablet TAKE 1 TABLET BY MOUTH EVERY 6 HOURS NEEDED FOR PAIN 06/15 completed Not Available Not Available Not Available estradiol 1 mg tablet TAKE 1 TABLET BY MOUTH EVERY DAY FOR 7 DAYS 12/09 completed Not Available Not Available Not Available pantoprazo le 40 mg tablet,del ayed release active Not Available Not Available Not Available diclofenac sodium 75 mg tablet,del ayed release 04/07 completed Not Available Not Available Not Available magnesium active Not Available Not Mandie ilable Not Available potassium acetate active Not Available Not Available Not Available One-A-Day Womens Formula active Not Available Not Available Not Available Iron (ferrous sulfate) active Not Available Not Available Not Available Vitamin B12 active Not Available Not Available Not Available Isibloom 0.15 mg-0.03 mg tablet TAKE 1 TABLET BY MOUTH EVERY DAY 04/07 completed Not Available Not Available Not Available Slynd 4 mg (28) tablet Take 1 tablet every day by oral route. 2022 active 3 sample packs given. Not Available Not Available Not Available Vitals Date Recorded Body height Body mass index (BMI) Body weight Body temperature Systolic blood pressure Diastolic blood pressure Provider Name and Address Organization Details Last Updated DateTime 2 157.48 cm 35.3 kg/m2 08043.3 3 g 97.8 [degF] 122 mm[Hg] 72 mm[Hg] Ilene Cisse [place] [facility] 2 16:24:28 Date Recorded Body height Body mass index (BMI) Body weight Body temperature Systolic blood pressure Diastolic blood pressure Provider Name and Address Organization Details Last Updated DateTime 3 157.48 cm 39.7 kg/m2 44210.8 3 g 98.6 [degF] 128 mm[Hg] 74 mm[Hg] Lisette Nguyễn [facility] 3 15:26:09 Date Recorded Body height Systolic blood pressure Diastolic blood pressure Provider Name and Address Organization Details Last Updated DateTime 04/07/2023 157.48 cm 122 mm[Hg] 70 mm[Hg] Leena Delgado [facility] 04/07/2023 15:53:24 Date Recorded Body height Body mass index (BMI) Body weight Systolic blood pressure Diastolic blood pressure Provider Name and Address Organization Details Last Updated DateTime 04/11/2023 157.48 cm 40.1 kg/m2 28600.7 3 g 126 mm[Hg] 72 mm[Hg] Amina Sierraroderick [facility] 3 09:31:57 Date Recorded Body height Body mass index (BMI) Body weight Body temperature Systolic blood pressure Diastolic blood pressure Provider Name and Address Organization Details Last Updated DateTime 3 157.48 cm 39.3 kg/m2 83293.3 6 g 97.3 [degF] 120 mm[Hg] 76 mm[Hg] Lisette Nguyễn [facility] 3 09:59:48 Social History Question Answer Notes LastModified by Organizat ion Details LastModified Time Tobacco Smoking Status Never Smoker Ilene deleon, [facility] 10/26/2021 12:07:12 What Is Your Level Of Alcohol Consumption? Moderate Information not available 10/26/2021 If You Are , What Was Your Level Of Alcohol Consumption Prior To ? None Information not available 12/09/2021 How Many Years Have You Consumed Alcohol? 5 Information not available 10/26/2021 Are You Blind Or Do You Have Difficulty Seeing? No Information not available 10/26/2021 Are You Deaf Or Do You Have Serious Difficulty Hearing? No Information not available 10/26/2021 What Type Of Diet Are You Following? REGULAR Information not available 10/26/2021 Which Illicit Or Recreational Drugs Have You Used? Marijuana Information not available 10/26/2021 Do You Or Have You Ever Used E-cigarettes Or Vape? Never Used Electronic Cigarettes Information not available 10/26/2021 How Many Children Do You Have? 2 Information not available 06/06/2023 What Is Your Relationship Status? Domestic Partner Information not available 10/26/2021 Are You Sexually Active? Yes Information not available 10/26/2021 Do You Use Any Illicit Or Recreational Drugs? Yes Information not available 10/26/2021 Have You Used IV Drugs? No Information not available 10/26/2021 Do You Or Have You Ever Used Any Other Forms Of Tobacco Or Nicotine? No Information not available 12/09/2021 Sex: Unknown Functional Status Question Answer Note LastModified by Organizat ion Details LastModified Time What is your exercise level? Occasional Information not available 10/26/2021 Mental Status None recorded. Family History Relationship Description Onset Age of this Age Resolved Age Notes LastModified by Organization Details LastModified Time Maternal Grandmother Malignant neoplastic disease [email or web address] Not available 2021 12:06:30 Maternal Grandmother Malignant tumor of breast [email or web address] Not available 2021 12:06:30 Maternal Grandmother Depressive disorder [email or web address] Not available 2021 12:06:30 Maternal Grandmother Hypertensive disorder [email or web address] Not available 2021 12:06:30 Paternal Grandfather Depressive disorder kbritsch Not available 2021 12:06:30 Paternal Grandfather Malignant neoplastic disease [email or web address] Not available 2021 12:06:30 Paternal Grandfather Hypertensive disorder kbritsch Not available 2021 12:06:30 Mother Depressive disorder kbritsch Not available 2021 12:06:30 Unspecified Relation Malignant tumor of lung kbritsch Not available 2021 12:06:30 Unspecified Relation Uterine leiomyoma kbritsch Not available 2021 12:06:30 Maternal Grandfather Malignant tumor of colon kbritsch Not available 2021 12:06:30 Maternal Grandfather Malignant neoplastic disease kbritsch Not available 2021 12:06:30 Maternal Grandfather Heart disease kbritsch Not available 2021 12:06:30 Paternal Grandmother Heart disease kbritsch Not available 2021 12:06:30 Paternal Grandmother Malignant neoplastic disease kbritsch Not available 2021 12:06:30 Sister Depressive disorder kbritsch Not available 2021 12:06:30 Sister Endometriosi s (clinical) kbritsch Not available 12:06:30 Sister Malignant tumor of ovary not too sure [email or web address] Not available 10/26/2021 12:41:36 Sister Malignant neoplasm of uterus kbritsch Not available 2021 12:06:30 Sister Malignant tumor of cervix kbritsch Not available 2021 12:06:30 Sister History of endometriosi s 24 [email or web address] Not available 10/26 12:41:02 Medical History Condition Response Other Cancer N High Blood Pressure N Colon Cancer N Cytomegalovirus N Hyperthyroidism N Breast Cancer N Herpes (HSV) N Blood Transfusion N MRSA N Lung Cancer N Hypothyroidism N Depression N Incontinence N Panic Attacks N Neurological Disorder N Deep Vein Thrombosis N Anxiety Disorder N Autoimmune disease N Arthritis N Tuberculosis/Positive PPD N Shingles N Polycystic Ovarian Syndrome N Cervical Cancer N Chlamydia N Hematuria N Stroke N Varicosities N Crohn's Disease N Seasonal allergies N Alzheimer's/Dementia N COPD/Emphysema N HPV/Genital Warts N Endometriosis N IBS (Irritable Bowel Syndrome) N History of Abnormal Pap N High Cholesterol N Liver Disease N Kidney Infection N Fibromyalgia N Ulcer N Kidney Disease N HIV N Gallbladder disease N Sickle Cell Disease/Trait N Von Willebrand disease N ADD/ADHD N Eating Disorder N Anemia N Diabetes Mellitus (non-insulin dependent ) N Ovarian Problems N Multiple Sclerosis N Gonorrhea N Frequent Urinary Tract infections N Osteopenia N Headaches/migraines N GERD (reflux) N Ovarian Cancer N Diabetes (insulin dependent) N Seizures/Epilepsy N Fibroids N Heart Attack N Asthma N Lupus N Endometrial Cancer N Rubella N Blood Clotting Disorder N Bipolar Disorder N Diabetes Mellitus (during ) N Ulcerative Colitis N Hepatitis N Heart Disease N Pulmonary Embolism N RPR N Chicken Pox N Osteoporosis N Gynecological History Statement/Question Response Flow Heavy Date of last HPV 10/26/2021 Frequency of Cycle (Q days) Never the me Date of LMP HPV Vaccine N Date of Last Pap Smear 10/26/2021 Duration of Flow (days) 7 days to months at a time Current Control Method None Age at Menarche 14 Obstetrics History GPAL:G 2 P 2 0 0 2 Type Value Full Term 2 Living 2 Total 2 Past Encounters Encounter ID Performer Location Encounter Start Date Encounter Closed Date Diagnosis/Indication Diagnosis SNOMED-CT Code Diagnosis ICD10 Code Diagnosis Note [id number] GATO Looney [facility] [address] [facility] [address] 10/26/2021 11:51:08 10/26/2021 14:53:59 Gynecologic examination 95238899 Z01.419 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 Denies SI. Denies need for f/u. Abnormal u terine bleeding 3546974674 9100 N93.9 PA for U/S. Discussed tx options for AUB. Janette would prefer to not take control but states she will discuss with her . Prescripti on for estradiol 1 mg x 1 week given. Plan f/u for TVUS once approved and further discuss treatment [id number] GATO Looney [facility] [address] [place] [address] 12/09/2021 15:20:30 12/09/2021 17:19:49 Abnormal uterine bleeding 1448200884 9100 N93.9 Denies further abnormal bleeding. Lining 18 mm on U/S today. Start provera 10 mg x 10 days. Plan repeat US in 4 weeks.Juan Ramon mmend weight loss. [id number] GATO Looney [address] [place] [address] 03/29/2022 16:13:42 03/29/2022 17:39:13 Abnormal uterine bleeding 9704767310 9100 N93.9 Discussed keeping a menstrual record. Reviewed option to observe for regular menses or treat at this time with control to regulate. Janette decided to start control and wants to take OCPs for now.OCPs- discussed risk CVA and VTE; ACHES reviewed. Discussed benefits and side effects.RT O for problems, questions, or concerns and for annual WWE. [id number] ANNA NAJERA LOCATION ANALYST [facility] [address] [place] [address] 03/09/2023 15:09:57 03/09/2023 17:54:48 Disorder of menstruation 605789311 N92.6 Pt comes in with AUB. Patient states that she had a similar issue last year around February. Had blood work and U/S completed. Patient states that she has been bleeding for the past couple of months. 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 When it is heavy she is passing clots approx the size of a golf ball. Patient states that she recently was told she is anemic and is on iron supplement s. Patient states she has issues of fatigue, headaches and feeling light headed at times. Patient reports changing her pad approx 6 times a day. Since last visit in March patient states that her cycles were not regular, but did have more consistenc y to them. She would bleed for 7 days get a break for 2 weeks and then bleed again. Patient states she did not take OCPs sent in at her last visit. Patient states she does not have a good history with OCPs, stating she has bad side effects. Patient also reports she was unable to get pap done at last visit due to bleeding. Cycle too heavy today for pap. Patient declines STI testing. --Discusse d the various causes of abnormal uterine bleeding. Including: polyps, fibroids, hyperplasi a, atypia, anovulatio n, etc.--Revi ewed the typical evaluation with labs and TVUS.--Rec ommended NSAID to help with cramping/b leeding.-- Briefly discussed the options available for treatment (depending on the results of evaluation ) such as hormonal treatment (OCPs, progestins ), Mirena, endometria l ablation, and surgery. Contracept ion: Condoms POCCBCTSHR TC- TVUS- PA case sent Advised patient she can do:-Ibupro fen 800 mg PO Q 8 hours x 5 days OR 600-800 mg 3 days before scheduled menses and 2 days during [id number] Benny Kirkpatrick, DO [facility] [address] [place] [address] 04/07/2023 14:52:07 04/08/2023 11:04:38 Abnormal uterine bleeding 6477670989 9100 N93.9 thickened endometriu m- tubal hysterosco py d and c ablation [id number] Kayleen Bernard, HAILEY [facility] [address] [place] [address] 04/11/2023 09:17:32 04/11/2023 18:42:46 Abnormal uterine bleeding 8069872239 9100 N93.9 UPT negative in office. EMB procedure completed with 1 pass; adequate tissue retrieved and sent to pathology. Further POC pending lab result review. Pt educated on bleeding precaution s, use of OTC NSAID therapy for cramping post-proce dure, and when to notify HCP/go to ER. Pt offered considerat ion for use of hormonal medication s to help control bleeding until procedure date. Pt amenable to POC. Pt given 3 sample packs of Slynd. Discussed risks/bene fits of use and avoidance of unprotecte d intercours e through date of surgery. Pt states understand ing of POC. [id number] Benny Kirkpatrick DO [facility] h [address] [place] [address] 06/15/2023 09:50:37 06/16/2023 10:31:21 Postoperative visit 649745914 Z09 doing well Health Concerns Section Related Observation LastModified by Organization Detai ls LastModified Time None Recorded Concern Status LastModified by Organization Details LastModified Time None Recorded Advance Directives Directive None Recorded Payers Encounter Date Sequence Insurance Name Policy Number Policy Glover Covered Member ID Glover Member ID Guarantor Name 03/29/2022 1 [facility] (MEDICAID REPLACEMENT - O) [id number] Janette Vj [id number] Janette Vj 03/09/2023 1 [facility] (MEDICAID REPLACEMENT - HMO) [id number] Janette Vj [id number] Janette Vj 04/07/2023 1 [facility] (MEDICAID REPLACEMENT - HMO) [id number] Janette Vj [id number] Janette Vj 04/11/2023 1 [facility] (MEDICAID REPLACEMENT - O) [id number] Janette Vj [id number] Janette Vj 06/15/[address] [facility] - HMO) [id number] Janette Vj [id number] Janette Vj Notes Date Note Type Note Provider Name and Address Organization Details Recorded Time 03/29/2022 text/html Janette presents for a f/u visit on abnormal bleeding. She was previously given estradiol 1 mg, then provera 10 mg, but she decided not to take either medication. She also declined oral contraception. She had an US last visit and the uterine lining was 18mm.Janette comes in today explaining that she wasn't completely truthful at her previous visits. 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 She reports that many issues resolved or improved. States she hasn't had any problems with bleeding since she stopped drinking. State she had a normal period in February. GATO Looney [address] [facility], [place], [address], [facility] 03/30/2022 15:46:58 03/09/2023 text/html Patient presents for bleeding for the past couple of months. Patient states that she had a similar issue last year around February. Had blood work and U/S completed. Patient states that she has been bleeding for the past couple of months. 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 When it is heavy she is passing clots approx the size of a golf ball. Patient states that she recently was told she is anemic and is on iron supplements. Patient states she has issues of fatigue, headaches and feeling light headed at times. Patient reports changing her pad approx 6 times a day. Since last visit in March patient states that her cycles were not regular, but did have more consistency to them. She would bleed for 7 days get a break for 2 weeks and then bleed again. Patient states she did not take OCPs sent in at her last visit. Patient states she does not have a good history with OCPs, stating she has bad side effects. Patient also reports she was unable to get pap done at last visit due to bleeding. Cycle too heavy today for pap. Patient declines STI testing. ANNA NAJERA, NATALIE [address] [facility], [place], [address], [employer] IV 03/09/2023 16:08:10 04/07/2023 text/html Abnormal BleedingReported bypatient.Onset/Timin g:every cycle Duration:almost daily Quality:heavy pt is f/u on abnormal uterine bleeding. wants to discuss ablation. Had US in office today. Benny Kirkpatrick DO [facility], [place], [address], [facility] IV 04/08/2023 22:05:19 04/11/2023 text/html Pt presents for EMB procedure. Pt was seen by Brooke Kirkpatrick MD on 04/07/23 for abnormal uterine bleeding. Plan of care for HSC, D&C, Bilat Salping, & Ablation. Last Pap: 10/2021 NILM, HPV neg. Pt denies any unprotected intercourse in the past two weeks. Pt has no other concerns. GATO Moreno [facility], [place], [address], [facility] IV 04/11/2023 19:23:00 06/15/2023 text/html Post-OpReported bypatient.Onset/Timin g:date of surgery: (05/23/2023) Quality:procedure: (LAPAROSCOPIC BILATERAL SALPINGECTOMY DILATION AND CURETTAGE,HYSTEROSCOP Y WITH ABLATION) Context:reason for procedure: (menorrhagia/ undesired fertility) Associated Symptoms:incision healing well; no fatigue; normal appetite; normal bowel function; no constipation; no nausea; no emesis; pain improving; no pain; no fever; no bleeding; no lower extremity edema/pain; no dysuria/urinary symptoms Pt states that she feels much better.Pt only has concerns of bloating but says that she knows it is normal. Benny Kirkpatrick DO [facility], [place], [address], [facility] 06/15/2023 11:00:00 OBGyn Episode No OBEpisode recorded.
--- OUTSIDE RECORDS SUMMARY | 2024-10-24 08:08 | XMS_ITS | Clinical Summary ---
Author Organization [facility] Address [address] [place] [address] Care Team Providers Care Oyster Tonger Name Role Phone Mary Lou Gallardo NP Primary Care Provider [phone] Allergies Active Allergy Reactions Criticality Noted Date [...] Gardasil:11/05 Assessment & Plan (07/23/2024 12:28 PM BUILDING RENTAL MANAGER): Pap done. RTO 12m. I will send the results to the portal. If she has not heard in a week, to call the office. BMI 38.0-38.9,adult 07/23/2024 Assessment & Plan (07/23/2024 12:29 PM BUILDING RENTAL MANAGER): She was applauded for her weight loss and encouraged to continue on. Family history of breast cancer 07/23/2024 Overview (07/23/2024): 07/23/24- mom, sister and aunt carry a gene Assessment & Plan (07/23/2024 12:33 PM BUILDING RENTAL MANAGER): She qualifies for genetic testing. Will arrange. [...] Date Resolved Date Abnormal uterine bleeding 12/09/2021 Encounters Date Type Department Care Team Description 10/17/2024 11:00 AM BUILDING RENTAL MANAGER Office Visit [facility] at [address] [address] Qian Yuen, HAILEY Dental abscess (Primary Dx) 10/09/2024 6:49 PM BUILDING RENTAL MANAGER - 10/09/2024 9:39 PM BUILDING RENTAL MANAGER Emergency [facility] Emergency Department [address] [place] [id number] Other migraine without status migrainosus, not intractable (Primary Dx) Discharge Disposition: Discharge to home or self care 10/08/2024 1:00 PM BUILDING RENTAL MANAGER Office Visit [facility] at [address] [place] [id number] Benny Ferrer DO Acute left ankle pain (Primary Dx); Closed nondisplaced fracture of left calcaneus, unspecified portion of calcaneus, initial encounter 09/28/2024 7:15 PM BUILDING RENTAL MANAGER Office Visit [facility] at [address] [address] Lebron Thomas NP Acute left ankle pain (Primary Dx); Achilles tendon pain 09/28/2024 10:30 AM BUILDING RENTAL MANAGER Ancillary Procedure [facility] Imaging at [address] [phone] Left foot pain 09/28/2024 Orders Only [facility] Primary [facility] at [address] [address] Mary Lou Gallardo NP Left foot pain (Primary Dx) 09/28/2024 Telephone [facility] at [address] [address] Mary Lou Gallardo NP Left foot pain from Last 3 Months Immunizations Immunization Administration Dates Next Due Hep B, Adolescent or Pediatric 10/26/2000,1999,03/10/2000 Influenza, Unspecified 09/05/2023,09/05/2022 Pneumococcal Polysaccharide PPV23 12/01/2013 Tdap 09/23/2016,12/02/2013 Surgical History Surgery Date Site/Laterality Comments ORAL SURGERY 09/05/2009 - 09/04/2010 x6 TUBAL LIGATION DILATION AND CURETTAGE OF UTERUS ENDOMETRIAL ABLATION Medical History Medical History Date Comments Premature baby ADHD (attention deficit hyperactivity disorder) Anemia Depression Anxiety Obesity Sleep apnea Family History Medical History Relation Name Comments Breast cancer Maternal Grandmother Arthritis Mother genetically pos itive. Thyroid disease Mother Lung cancer Mother's Brother Breast cancer Mother's Sister genetically positive Heart disease Paternal Grandfather Breast cancer Paternal Grandmother Endometriosis Sister Fibromyalgia Sister genetically pos itive Lupus Sister Cancer Neg Hx no colon or liz ast cancer cmt 07/23/24 Relation Name Status Comments Maternal Grandmother Mother Mother's Brother Mother's Sister Paternal Grandfather Paternal Grandmother Sister Social History Tobacco Use Types Packs/Day Years [...] on file Legal Sex Female 11:52 AM BUILDING RENTAL MANAGER Gender Identity Not on file Sexual Orientation Not on file Obstetrics History Last Filed Vital Signs Vital Sign Reading Time Taken Comments Blood Pressure 128/84 10/17/2024 10:48 AM BUILDING RENTAL MANAGER Pulse 97 10/17/2024 10:48 AM BUILDING RENTAL MANAGER Temperature 37 C (98.6 F) 10/17/2024 10:48 AM BUILDING RENTAL MANAGER Respiratory Rate 20 10/17/2024 10:48 AM BUILDING RENTAL MANAGER Oxygen Saturation 98% 10/17/2024 10:48 AM BUILDING RENTAL MANAGER Inhaled Oxygen Concentration - - Weight 90.7 kg (200 lb) 10/09/2024 3:12 PM BUILDING RENTAL MANAGER Height 157.5 cm (5' 2 ) 10/08/2024 12:57 PM BUILDING RENTAL MANAGER Body Mass Index 36.58 10/08/2024 12:57 PM BUILDING RENTAL MANAGER Plan of Treatment Health Maintenance Due Date Last Done Comments Varicella Vaccines (1 of 2 - 13+ 2-dose series) 01/20/2004 Influenza Vaccine (#1) 2024 , 09/05/2022 Depression Screening 05/01/2025 05/01/2024, 03/22/2024 Cervical Cancer Screening 07/23/20252023, 07/23/2024, 03/22/2023 Regular Well Visit/Exam 18-64 07/23/2025 07/23/2024 DTaP/Tdap/Td Vaccine (3 - Td or Tdap) 09/23/2026 09/23/2016, 12/02/2013 Hepatitis B Screening Completed 10/26/2000 , 04/12/2000, 03/10/2000 Pneumococcal vaccine <65 Aged Out 12/01/2013 No longer eligible based on patient's age to complete this topic Hepatitis C Screening Completed 03/22/2024 HPV Vaccines Aged Out No longer eligi ble based on patient's age to complete this topic Procedures Procedure Name Priority Date/Time Associated Diagnosis Comments CT HEAD WO CONTRAST ED 10/09/2024 3:46 PM BUILDING RENTAL MANAGER XR FOOT LEFT 3 OR MORE VIEWS Schedule Routine, Read Routine (OP Routine) 09/28/2024 10:32 AM BUILDING RENTAL MANAGER Left foot pain HIGH RISK HPV DNA DETECTION WITH GENOTYPING Routine 07/23/2024 1:43 PM BUILDING RENTAL MANAGER Well woman exam HEPATITIS C ANTIBODY Routine 03/22/2024 12:30 PM CDT Encounter for hepatitis C screening test for low risk patient from Last 3 Months or Most Recently Relevant to Health Maintenance Results * CT Head WO Contrast (10/09/2024 3:46 PM BUILDING RENTAL MANAGER) Anatomical Region Laterality Modality Head and Neck N/A Computed Tomogra phy 10/09/2024 4:00 PM BUILDING RENTAL MANAGER Narrative 10/09/2024 4:03 PM BUILDING RENTAL MANAGER EXAM DESCRIPTION: CT HEAD WO CONTRAST REASON [...] by Dawson Degroot M.D. CH: Report ID: [id number] Reading Location: [id number] Procedure Note Dawson Degroot Jr., MD - [...] Dawson Degroot M.D. CH: NORA Report ID: [id number] Reading Location: [id number] Michele ESPINOZA IMG CT PROCEDURES Final Resu lt * XR Foot Left 3+ Vw (09/28/2024 10:32 AM BUILDING RENTAL MANAGER) Anatomical Region Laterality Modality Lower Extremities, Foot Left Digital Radiography 09/28/2024 11:2 4 AM BUILDING RENTAL MANAGER Narrative 09/28/2024 11:25 AM BUILDING RENTAL MANAGER EXAM DESCRIPTION: XR FOOT LEFT 3 OR [...] by Benny Garcia M.D. T: Report ID: [id number] Reading Location: [id number] Procedure Note Benny Garcia MD - 09/28/2024 [...] midfoot joint spaces are normal. There is [id number] metatarsophalangeal joint osteoarthritis. Insertional Achillestendinopathy with enthesophyte formation and a moderate-sized heel spur are present. 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 Moderate-sized heel spur. THIS IS AN ELECTRONICALLY VERIFIED FINAL REPORT 09/28/2024 11:25 AM - Electronically signed by Benny Garcia M.D. T: Report ID: [id number] Reading Location: [place] [address] Mary Lou Gallardo NP IMG XR PROCEDURES Final Result * High Risk HPV DNA Detection with Genotyping (Molecular component) (07/23/2024 1:43 PM BUILDING RENTAL MANAGER) HPV HR 16 Not Detected Not Detected [facility] Comment:Testing performed by : [facility], [address] [place]., [address] HPV HR 18 Not Detected Not Detected [facility] Comment:Testing performed by : [facility], [address] [place]., [address] HPV HR Non 16/18 Not Detected Not [...] this test have been verified by the [facility] Molecular Infectious Disease laboratory. Correlate with separately reported cytology results, as applicable. Interpretive data last revised 23 Testing performed by: [facility], [address] [place]., [address] Endocervical 07/23/2024 1:43 PM BUILDING RENTAL MANAGER 07/24/2024 1:04 PM BUILDING RENTAL MANAGER Narrative CERNER CH - 07/24/2024 8:29 PM BUILDING RENTAL MANAGER Clinical history and diagnosis->Well Woman Number of vials->1 Testing type->Screening Last menstrual period (date if known)->07/20/2023 Menstrual status->Other, please type in Ablation Mary Alice Traore MD LAB BODY FLUIDS AND STOOLS ORDERABLES Final Result Performing Organization Address [facility] Co de Phone Number [facility] [address] [place] [address] [facility] * Hepatitis C antibody Blood (03/22/2024 12:30 [...] MICROBIOLOGY - GENERAL ORDER BARRY Final Result Performing Organization Address [facility]/ZIP Co de Phone Number [facility] [address] [address] [employer] [place] [address] from Last 3 Months or Most Recently Relevant to Health Maintenance Insurance [employer] Address: [address] [place] [address] [facility] Care Teams Oyster Tonger Relationship Specialty Start Date End Date Mary Lou Gallardo NP [address] [place] [address] PCP - General Family Medicine 03/22/24
--- NOTE | 2024-10-24 08:19 | ED_ITS ---
HPI - Nausea/Vomiting/Diarrhea General Chief complaint: Nausea/Vomiting/Diarrhea Stated complaint: DIARRHEA Time Seen by Provider: 10/24/24 08:08 Source: patient Mode of arrival: ambulatory Limitations: no limitations History of Present Illness HPI Narrative: 34-year-old female was recently diagnosed with dental caries and prescribed clindamycin. The patient has a walking boot in the left lower extremity for of fractured bone spur around the Achillis tendon. The patient presents to the ED with a 1 day history of -- blood around her stool. The blood is noted to be bright red and coating the stool. Blood was present on the wipes. Her stool is firm and well formed. No hematemesis or melena. MD elicited complaint: other ( Rectal bleeding) Onset (ago): day(s) ( 1 day) Associated nausea: Yes Associated abdominal pain: No Location of pain: none Exacerbating factors: none Relieving factors: none Associated symptoms: denies other symptoms Related Data Home Medications ?Medication ?Instructions ?Recorded ?Confirmed ?Last Taken ?Type multivitamin tablet 10/22/21 Unknown History Allergies Allergy/AdvReac Type Severity Reaction Status Date / Time Penicillins Allergy Mild Blister Verified 10/24/24 08:16 Review of Systems 2 Review of Systems: All systems reviewed & are unremarkable except as noted in HPI and below PMFSH Past Medical History Medical History Patient denies significant medical history Surgical History Surgical History No significant past surgical history Family History Family History Mother Hypothyroid Social History Social History Smoking status: Never smoker Alcohol intake: current Alcohol use details: minimal rare alcohol intake Gender identity (if verbalized by the patient): Female Exam 2 Narrative: vitals are stable. Const: General: healthy appearing and no acute distress Nutritional Appearance: well nourished Orientation/consciousness: patient oriented x3 Limitations: no limitations HENMT: Head: normal to inspection Ears: external ears normal F ashli/Nose/Sinus: Normal external nose present Face and sinus: normal facial exam Mouth: Yes Normal oral and palatal mucosa present Throat: posterior oropharynx normal Eyes: Conjunctivae: conjunctivae normal Cornea: corneas normal Pupils: E qual, round and reactive pupils present EOM: EOMs intact bilaterally D irect Ophthalmoscopy: no photophobia Neck: Neck: normal visual inspection, no lymphadenopathy and no meningeal signs Chest: Chest palpation & inspection: normal inspection of the chest Resp: Effort & Inspection: normal respiratory effort Auscultation: clear to auscultation bilaterally Cardio: Rate: regular rate Rhythm: regular rhythm GI: GI Palp: Yes Soft to palpation Auscultation: normal bowel sounds O ther: No tenderness/rigidity / rebound. : General: Yes no CVA tenderness Back/Spine/Pelvis: Back: no CVA tenderness Skin: General skin exam: normal color Rashes: no rashes Wounds: no wounds Neuro: General: patient oriented x3, moves all extremities, no meningeal signs, no focal motor deficits and CN's II-XI intact bilaterally Cranial nerves: Yes Nystagmus not present Speech: normal speech Gait exam (Neuro): Normal gait present Extrem: General: normal to inspection and no clubbing, cyanosis or edema Psych: Mental Status: mental status grossly normal Affect: normal affect Attitude: cooperative Course Course Emergency Course: Rectal bleeding secondary to hemorrhoids-- blood counts are stable hematuria- patient had a uterine ablation and has had intermittent bleeding. Elevated LFTs secondary to fatty liver Vital Signs Vital signs: Vital Signs Oxygen Delivery Room Air 10/24/24 08:03 Temperature 36.6 C 10/24/24 08:07 Pulse Rate 64 10/24/24 08:07 Respiratory Rate 16 10/24/24 08:07 Blood Pressure 115/67 10/24/24 08:07 Pulse Oximetry 99 10/24/24 08:07 Oxygen Delivery Room Air 10/24/24 08:07 MDM - Nausea/Vomiting/Diarrhea MDM Narrative Medical decision making narrative: rectal bleeding hepatic steatosis Differential Diagnosis Differential diagnosis: Likely other ( lower GI bleeding) Lab Data Attestation: I reviewed the patient's lab results. 10/24/24 08:35 10/24/24 08:36 Labs: Lab Results 10/24/24 10/24/24 Range/Units 08:35 08:36 WBC 7.8 (4.8-10.8) K/mm3 RBC 4.94 (4.20-5.40) M/mm3 Hgb 14.7 (12.0-15.0) g/dL Hct 44.0 (35.0-49.0) % MCV 89.1 (78.0-102.0) fL MCH 29.8 (27.0-31.0) pg MCHC 33.4 (32-36) g/dL RDW 13.5 (11.6-14.4) % Plt Count 302 (150-420) K/mm3 MPV 10.0 (9.2-11.8) fl Immature Gran % (Auto) 0.4 H (0.0-0.0) % Neut % (Auto) 65.5 (50.0-70.0) % Lymph % (Auto) 26.7 (18.0-42.0) % Fallon % (Auto) 4.7 (2.0-11.0) % Eos % (Auto) 1.9 (1.0-6.0) % Baso % (Auto) 0.8 (0.0-1.0) % Lymph # (Auto) 2.09 (1.10-4.50) K/mm3 Fallon # (Auto) 0.37 (0.10-0.90) K/mm3 Eos # (Auto) 0.15 (0.02-0.50) K/mm3 Baso # (Auto) 0.06 (0.00-0.10) K/mm3 Abs Immat Gran (auto) 0.03 H (0.00-0.00) K/mm3 Absolute Neuts (auto) 5.12 (1.70-7.20) K/mm3 Absolute Nucleated RBC 0.00 (0.00-0.00) K/mm3 Nucleated RBC % 0.0 (0-0.0) % PT 10.0 (9.50-12.1) Seconds INR 0.9 APTT 26.2 (23.9-30.70) Sec Sodium 139 (136-145) mmol/L Potassium 4.6 (3.5-5.1) mmol/L Chloride 104 (98-108) mmol/L Carbon Dioxide 26 (21-32) mmol/L Anion Gap 9 (4-12) mmol/L BUN 15 (7-18) mg/dL Creatinine 0.81 (0.55-1.02) mg/dL Estim Creat Clear Calc 92 ml/min Estimated GFR > 60 (59 - ) Glucose 107 H (70-99) mg/dL Calculated Osmolality 288 (285-295) mOsm/kg Calcium 8.9 (8.5-10.1) mg/dL Total Bilirubin 0.4 (0.00-1.00) mg/dL AST 38 H (15-37) U/L ALT 79 H (14-59) U/L Alkaline Phosphatase 119 H (46-116) U/L Total Protein 7.1 (6.4-8.2) g/dL Albumin 3.6 (3.4-5.0) g/dL Discharge Plan Discharge Clinical Impression: Rectal bleeding, Fatty liver Hemorrhoids Qualifiers: Hemorrhoid type: unspecified Qualified Code(s): K64.9 - Unspecified hemorrhoids Patient Disposition: Home, Self-Care Condition: Stable Instructions: Antibiotic Form, Hemorrhoids (ED) Patient Language: Kittitian Prescriptions: New polyethylene glycol 3350 [Miralax] 17 gram/dose powder 17 g PO DAILY Qty: 238 0RF No Action multivitamin [Daily Multivitamin] Tablet ferrous sulfate 325 mg (65 mg iron) tablet 325 mg PO DAILY Qty: 30 0RF Follow-up/Referrals: Paulina,Mary Lou Cox APRN [Primary Care Provider] - Time of Disposition: 09:33
[2024-10-24 08:40] LABS: Basophils Absolute Auto 0.06 K/mm3 (0.00-0.10); Basophils Percent Auto 0.8 % (0.0-1.0); Eosinophils Absolute Auto 0.15 K/mm3 (0.02-0.50); Eosinophils Percent Auto 1.9 % (1.0-6.0); Hemoglobin 14.7 g/dL (12.0-15.0); Immature Granulocyte Absolute 0.03 K/mm3 (0.00-0.00); Immature Granulocyte Percent A 0.4 % (0.0-0.0); Lymphocytes Absolute Auto 2.09 K/mm3 (1.10-4.50); Lymphocytes Percent Auto 26.7 % (18.0-42.0); Mean Corpuscular HGB Conc 33.4 g/dL (32-36); Mean Corpuscular Hemoglobin 29.8 pg (27.0-31.0); Mean Corpuscular Volume 89.1 fL (78.0-102.0); Monocytes Absolute Auto 0.37 K/mm3 (0.10-0.90); Monocytes Percent Auto 4.7 % (2.0-11.0); Neutrophils Absolute Auto 5.12 K/mm3 (1.70-7.20); Neutrophils Percent Auto 65.5 % (50.0-70.0); Platelet Count Result 302 K/mm3 (150-420); Red Blood Count 4.94 M/mm3 (4.20-5.40); Red Cell Distribution Width 13.5 % (11.6-14.4); White Blood Count 7.8 K/mm3 (4.8-10.8)
--- OUTSIDE RECORDS SUMMARY | 2024-10-24 08:45 | XMS_ITS | Clinical Summary ---
Author Organization [facility] Address [address] [place] [address] Care Team Providers Care Payroll Assistant Name Role Phone Mary Lou Gallardo NP Primary Care Provider [phone] Allergies Active Allergy Reactions Criticality Noted Date [...] Gardasil:11/05 Assessment & Plan (07/23/2024 12:28 PM CAMPAIGN ASSISTANT): Pap done. RTO 12m. I will send the results to the portal. If she has not heard in a week, to call the office. BMI 38.0-38.9,adult 07/23/2024 Assessment & Plan (07/23/2024 12:29 PM CAMPAIGN ASSISTANT): She was applauded for her weight loss and encouraged to continue on. Family history of breast cancer 07/23/2024 Overview (07/23/2024): 07/23/24- mom, sister and aunt carry a gene Assessment & Plan (07/23/2024 12:33 PM CAMPAIGN ASSISTANT): She qualifies for genetic testing. Will arrange. [...] Department Care Team Description 10/17/2024 11:00 AM CAMPAIGN ASSISTANT Office Visit [facility] Con[facility]ient Care at [address] [address] Qian Yuen, HAILEY Dental abscess (Primary Dx) 10/09/2024 6:49 PM CAMPAIGN ASSISTANT - 10/09/2024 9:39 PM CAMPAIGN ASSISTANT Emergency [facility] Emergency Department [address] [place] [id number] Other migraine without status migrainosus, not intractable (Primary Dx) Discharge Disposition: Discharge to home or self care 10/08/2024 1:00 PM CAMPAIGN ASSISTANT Office Visit [facility] Primary Care at [address] [place] [id number] Benny Ferrer DO Acute left ankle pain (Primary Dx); Closed nondisplaced fracture of left calcaneus, unspecified portion of calcaneus, initial encounter 09/28/2024 7:15 PM CAMPAIGN ASSISTANT Office Visit [facility] Care at [address] [address] Lebron Thomas NP Acute left ankle pain (Primary Dx); Achilles tendon pain 09/28/2024 10:30 AM CAMPAIGN ASSISTANT Ancillary Procedure [facility] Imaging at [address] [address] Left foot pain 09/28/2024 Orders Only [facility] Primary Care at [address] [address] Mary Lou Gallardo NP Left foot pain (Primary Dx) 09/28/2024 Telephone [facility] Primary Care at [address] [address] Mary Lou Gallardo NP Left [...] on file Legal Sex Female 11:52 AM CAMPAIGN ASSISTANT Gender Identity Not on file Sexual Orientation Not on file Obstetrics History Last Filed Vital Signs Vital Sign Reading Time Taken Comments Blood Pressure 128/84 10/17/2024 10:48 AM CAMPAIGN ASSISTANT Pulse 97 10/17/2024 10:48 AM CAMPAIGN ASSISTANT Temperature 37 C (98.6 F) 10/17/2024 10:48 AM CAMPAIGN ASSISTANT Respiratory Rate 20 10/17/2024 10:48 AM CAMPAIGN ASSISTANT Oxygen Saturation 98% 10/17/2024 10:48 AM CAMPAIGN ASSISTANT Inhaled Oxygen Concentration - - Weight 90.7 kg (200 lb) 10/09/2024 3:12 PM CAMPAIGN ASSISTANT Height 157.5 cm (5' 2 ) 10/08/2024 12:57 PM CAMPAIGN ASSISTANT Body Mass Index 36.58 10/08/2024 12:57 PM CAMPAIGN ASSISTANT Plan of Treatment Health Maintenance Due Date [...] HEAD WO CONTRAST ED 10/09/2024 3:46 PM CAMPAIGN ASSISTANT XR FOOT LEFT 3 OR MORE VIEWS Schedule Routine, Read Routine (OP Routine) 09/28/2024 10:32 AM CAMPAIGN ASSISTANT Left foot pain HIGH RISK HPV DNA DETECTION WITH GENOTYPING Routine 07/23/2024 1:43 PM CAMPAIGN ASSISTANT Well woman exam HEPATITIS C ANTIBODY Routine 03/22/2024 12:30 PM CDT Encounter for hepatitis C screening test for low risk patient from Last 3 Months or Most Recently Relevant to Health Maintenance Results * CT Head WO Contrast (10/09/2024 3:46 PM CAMPAIGN ASSISTANT) Anatomical Region Laterality Modality Head and Neck N/A Computed Tomogra phy 10/09/2024 4:00 PM CAMPAIGN ASSISTANT Narrative 10/09/2024 4:03 PM CAMPAIGN ASSISTANT EXAM DESCRIPTION: CT HEAD WO CONTRAST REASON [...] by Dawson Degroot M.D. CH: Report ID: [id number] Reading Location: [id number] Procedure Note Dawson Degroot Jr., MD - [...] Dawson Degroot M.D. CH: NORA Report ID: [id number] Reading Location: [id number] Michele ESPINOZA IMG CT PROCEDURES Final Resu lt * XR Foot Left 3+ Vw (09/28/2024 10:32 AM CAMPAIGN ASSISTANT) Anatomical Region Laterality Modality Lower Extremities, Foot Left Digital Radiography 09/28/2024 11:2 4 AM CAMPAIGN ASSISTANT Narrative 09/28/2024 11:25 AM CAMPAIGN ASSISTANT EXAM DESCRIPTION: XR FOOT LEFT 3 OR [...] by Benny Garcia M.D. T: Report ID: [id number] Reading Location: [id number] Procedure Note Benny Garcia MD - 09/28/2024 [...] midfoot joint spaces are normal. There is [id number] metatarsophalangeal joint osteoarthritis. Insertional Achillestendinopathy with enthesophyte formation and a moderate-sized heel spur are present. 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 Moderate-sized heel spur. THIS IS AN ELECTRONICALLY VERIFIED FINAL REPORT 09/28/2024 11:25 AM - Electronically signed by Benny Garcia M.D. T: Report ID: [id number] Reading Location: [place] [address] Mary Lou Gallardo NP IMG XR PROCEDURES Final Result * High Risk HPV DNA Detection with Genotyping (Molecular component) (07/23/2024 1:43 PM CAMPAIGN ASSISTANT) HPV HR 16 Not Detected Not Detected [facility] Comment:Testing performed by : [facility], [address] [place]., [address] HPV HR 18 Not Detected Not Detected NEPTALI Comment:Testing performed by : [facility], [address] [place]., [address] HPV HR Non 16/18 Not Detected Not [...] this test have been verified by the [facility] Molecular Infectious Disease laboratory. Correlate with separately reported cytology results, as applicable. Interpretive data last revised 23 Testing performed by: [facility], [address] [place]., [address] Endocervical 07/23/2024 1:43 PM CAMPAIGN ASSISTANT 07/24/2024 1:04 PM CAMPAIGN ASSISTANT Narrative CERNER CH - 07/24/2024 8:29 PM CAMPAIGN ASSISTANT Clinical history and diagnosis->Well Woman Number of vials->1 Testing type->Screening Last menstrual period (date if known)->07/20/2023 Menstrual status->Other, please type in Ablation Mary Alice Traore MD LAB BODY FLUIDS AND STOOLS ORDERABLES Final Result Performing Organization Address City/[facility] Co de Phone Number NEPTALI [phone] [place] [address] [facility] * Hepatitis C antibody Blood (03/22/2024 [...] ORDER BARRY Final Result Performing Organization Address City/[facility]/ZIP Co de Phone Number NEPTALI [phone] [address] [place] [address] from Last 3 Months or Most Recently Relevant to Health Maintenance Insurance [employer] Address: [address] [place] [id number] [facility] Care Teams Payroll Assistant Relationship Specialty Start Date End Date Mary Lou Gallardo NP [address] [place] [address] PCP - General Family Medicine 03/22/24
--- OUTSIDE RECORDS SUMMARY | 2024-10-24 08:45 | XMS_ITS | Referral Summary ---
Author Organization [facility] Address [address] [place] [address] Care Team Providers Care Webbing Weaver Name Role Phone Mary Lou Gallardo NP Primary Care Provider [phone] Encounters Date Type Department Care Team Description 10/17/2024 11:00 AM AUTOMATION TECHNOLOGIST Office Visit [facility] Medical [facility] Convenient Care at [address] [address] Qian Yuen NP Dental abscess (Primary Dx) 10/09/2024 6:49 PM AUTOMATION TECHNOLOGIST - 10/09/2024 9:39 PM AUTOMATION TECHNOLOGIST Emergency [facility] Emergency Department [address] [place] [address] Other migraine without status migrainosus, not intractable (Primary Dx) Discharge Disposition: Discharge to home or self care 10/08/2024 1:00 PM AUTOMATION TECHNOLOGIST Office Visit [facility] Sports [facility] and Primary Care at [address] [place] [address] Benny Ferrer DO Acute left ankle pain (Primary Dx); Closed nondisplaced fracture of left calcaneus, unspecified portion of calcaneus, initial encounter 09/28/2024 7:15 PM AUTOMATION TECHNOLOGIST Office Visit [facility] Con[facility]ient Care at [address] [address] Lebron Thomas NP Acute left ankle pain (Primary Dx); Achilles tendon pain 09/28/2024 10:30 AM AUTOMATION TECHNOLOGIST Ancillary Procedure [facility] Imaging at [address] [address] Left foot pain 09/28/2024 Orders Only [facility] Medical [facility] Primary Care at [address] [address] Mary Lou Gallardo NP Left foot pain (Primary Dx) 09/28/2024 Telephone [facility] Primary Care at [address] [address] Mary Lou Gallardo NP Left [...] Gardasil:11/05 Assessment & Plan (07/23/2024 12:28 PM AUTOMATION TECHNOLOGIST): Pap done. RTO 12m. I will send the results to the portal. If she has not heard in a week, to call the office. BMI 38.0-38.9,adult 07/23/2024 Assessment & Plan (07/23/2024 12:29 PM AUTOMATION TECHNOLOGIST): She was applauded for her weight loss and encouraged to continue on. Family history of breast cancer 07/23/2024 Overview (07/23/2024): 07/23/24- mom, sister and aunt carry a gene Assessment & Plan (07/23/2024 12:33 PM AUTOMATION TECHNOLOGIST): She qualifies for genetic testing. Will arrange. [...] on file Legal Sex Female 11:52 AM AUTOMATION TECHNOLOGIST Gender Identity Not on file Sexual Orientation Not on file Last Filed Vital Signs Vital Sign Reading Time Taken Comments Blood Pressure 128/84 10/17/2024 10:48 AM AUTOMATION TECHNOLOGIST Pulse 97 10/17/2024 10:48 AM AUTOMATION TECHNOLOGIST Temperature 37 C (98.6 F) 10/17/2024 10:48 AM AUTOMATION TECHNOLOGIST Respiratory Rate 20 10/17/2024 10:48 AM AUTOMATION TECHNOLOGIST Oxygen Saturation 98% 10/17/2024 10:48 AM AUTOMATION TECHNOLOGIST Inhaled Oxygen Concentration - - Weight 90.7 kg (200 lb) 10/09/2024 3:12 PM AUTOMATION TECHNOLOGIST Height 157.5 cm (5' 2 ) 10/08/2024 12:57 PM AUTOMATION TECHNOLOGIST Body Mass Index 36.58 10/08/2024 12:57 PM AUTOMATION TECHNOLOGIST Plan of Treatment Not on file Procedures Procedure Name Priority Date/Time Associated Diagnosis Comments CT HEAD WO CONTRAST ED 10/09/2024 3:46 PM AUTOMATION TECHNOLOGIST XR FOOT LEFT 3 OR MORE VIEWS Schedule Routine, Read Routine (OP Routine) 09/28/2024 10:32 AM AUTOMATION TECHNOLOGIST Left foot pain HIGH RISK HPV DNA DETECTION WITH GENOTYPING Routine 07/23/2024 1:43 PM AUTOMATION TECHNOLOGIST Well woman exam HEPATITIS C ANTIBODY Routine 03/22/2024 12:30 PM CDT Encounter for hepatitis C screening test for low risk patient from Last 3 Months or Most Recently Relevant to Health Maintenance Results * CT Head WO Contrast (10/09/2024 3:46 PM AUTOMATION TECHNOLOGIST) Anatomical Region Laterality Modality Head and Neck N/A Computed Tomogra phy 10/09/2024 4:00 PM AUTOMATION TECHNOLOGIST Narrative 10/09/2024 4:03 PM AUTOMATION TECHNOLOGIST EXAM DESCRIPTION: CT HEAD WO CONTRAST REASON [...] Dawson Degroot M.D. CH: NORA Report ID: [id number] Reading Location: [id number] Procedure Note Dawson Degroot Jr., MD - [...] by Dawson Degroot M.D. CH: Report ID: [id number] Reading Location: [id number] Michele ESPINOZA IM CT PROCEDURES Final Resu lt * XR Foot Left 3+ Vw (09/28/2024 10:32 AM AUTOMATION TECHNOLOGIST) Anatomical Region Laterality Modality Lower Extremities, Foot Left Digital Radiography 09/28/2024 11:2 4 AM AUTOMATION TECHNOLOGIST Narrative 09/28/2024 11:25 AM AUTOMATION TECHNOLOGIST EXAM DESCRIPTION: XR FOOT LEFT 3 OR [...] by Benny Garcia M.D. T: Report ID: [id number] Reading Location: [id number] Procedure Note Benny Garcia MD - 09/28/2024 [...] midfoot joint spaces are normal. There is [id number] metatarsophalangeal joint osteoarthritis. Insertional Achillestendinopathy with enthesophyte formation and a moderate-sized heel spur are present. 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 Moderate-sized heel spur. THIS IS AN ELECTRONICALLY VERIFIED FINAL REPORT 09/28/2024 11:25 AM - Electronically signed by Benny Garcia M.D. T: Report ID: [id number] Reading Location: [id number] us Mary Lou Gallardo THREAD MACHINE OPERATOR IMG XR PROCEDURES Final Result * High Risk HPV DNA Detection with Genotyping (Molecular component) (07/23/2024 1:43 PM AUTOMATION TECHNOLOGIST) HPV HR 16 Not Detected Not Detected [facility] Comment:Testing performed by : [facility], [address] [facility] [place]., [address] HPV HR 18 Not Detected Not Detected NEPTALI Comment:Testing performed by : [facility], [address] [facility], [place]., [address] HPV HR Non 16/18 Not Detected Not [...] this test have been verified by the [facility] Molecular Infectious Disease laboratory. Correlate with separately reported cytology results, as applicable. Interpretive data last revised 23 Testing performed by: [facility], [address] [place]., [address] Endocervical 07/23/2024 1:43 PM AUTOMATION TECHNOLOGIST 07/24/2024 1:04 PM AUTOMATION TECHNOLOGIST Jose L GUNDERSON - 07/24/2024 8:29 PM AUTOMATION TECHNOLOGIST Clinical history and diagnosis->Well Woman Number of vials->1 Testing type->Screening Last menstrual period (date if known)->07/20/2023 Menstrual status->Other, please type in Ablation Mary Alice Traore MD LAB BODY FLUIDS AND STOOLS ORDERABLES Final Result NE[facility] [id number] [address] Department [place] [address] [facility] * Hepatitis C antibody Blood (03/22/2024 [...] GENERAL [place] [id number] [address] Department [place] [address] from Last 3 Months or Most Recently Relevant to Health Maintenance Insurance [facility] [employer]ANS Address: [facility] [id number] [place] [address] [facility] PLAN Care Teams Webbing Weaver Relationship Specialty Start Date End Date Mary Lou Gallardo NP [address] [facility] [address] [place] [address] PCP - General Family Medicine 03/22/24
--- OUTSIDE RECORDS SUMMARY | 2024-10-24 08:45 | XMS_ITS | Clinical Summary ---
Author Organization [facility] Address [address] [place] [address] Care Team Providers Care Director Biologics Name Role Phone Jaun Nuñez MD Primary Care Provider [phone] Allergies Active Allergy Reactions Criticality Noted Date [...] to complete this topic Insurance Care Teams Director Biologics Relationship Specialty Start Date End Date Jaun Nuñez MD [address] [place] [address] PCP - General INTERNAL MEDICINE 02/24/20
--- OUTSIDE RECORDS SUMMARY | 2024-10-24 08:45 | XMS_ITS | Clinical Summary ---
Author Organization [facility] Address [address] [place] [address] Phone Care Team Providers Care Home Service Technician Name Role Phone Provider, None Primary Care [...] Insurance [place] [id number] Advance Directives * Full Code (Latest Code [...] measures to stabilize the patient. Care Teams Home Service Technician Relationship Specialty Start Date End Date Provider, None [place] PCP - General 09/20/16
[2024-10-24 08:57] LABS: INR 0.9; Partial Thromboplastin Time 26.2 Sec (23.9-30.70)
--- NOTE | 2024-10-24 09:06 | PC.NURSE ---
pt is sitting on stretcher talking with sig other at this time. nad noted. denies any needs or complaints, awaiting lab results. will continue to monitor.
[2024-10-24 09:11] LABS: Alanine Aminotransferase 79 U/L (14-59); Albumin Level 3.6 g/dL (3.4-5.0); Alkaline Phosphatase 119 U/L (46-116); Anion Gap 9 mmol/L (4-12); Aspartate Amino Transferase 38 U/L (15-37); Bilirubin,Total 0.4 mg/dL (0.00-1.00); Blood Urea Nitrogen 15 mg/dL (7-18); Calcium 8.9 mg/dL (8.5-10.1); Carbon Dioxide 26 mmol/L (21-32); Chloride 104 mmol/L (98-108); Estimated CRCL calculation 92 ml/min; Estimated Glomerular Filt Rate > 60; Glucose 107 mg/dL (70-99); Osmolality Calculated 288 mOsm/kg (285-295); Potassium 4.6 mmol/L (3.5-5.1); Sodium 139 mmol/L (136-145); Total Protein 7.1 g/dL (6.4-8.2)
[2024-10-24 09:55] VITALS: BP 110/82; PULSE 68; RESP 18; TEMP 36.7; O2SAT 99
== END 2024-10-24 09:55 | disposition home or self-care (01) ==
PROVIDERS: Emergency Provider Internal Medicine Critical Care Medicine; PCP Nurse Practitioner Family
DX: K64.9 Unspecified hemorrhoids (principal); K62.5 Hemorrhage of anus and rectum; K76.0 Fatty (change of) liver, not elsewhere classified
CPT/HCPCS: 36415; 80053; 85025; 85610; 85730; 99283